=== PATIENT | male | born 1950 | race Caucasian/White ===

== ENCOUNTER 2019-07-09 21:08 | Inpatient (IN) | payer MEDICARE, OTHER ==
[2019-07-09] MEDS: Pravastatin Sodium 20 MG TAB PO SCH (22:14)
[2019-07-09] MEDS ORDERED: Pravastatin Sodium 20 MG TAB PO SCH (22:15)
[2019-07-09] MEDS ORDERED: Gabapentin 100 MG CAP PO SCH (22:15)
[2019-07-09] MEDS ORDERED: Atenolol 25 MG TAB PO SCH (22:15)
[2019-07-09] MEDS: ICOSAPENT ETHYL PO SCH (22:22)
[2019-07-10] MEDS ORDERED: Gentamicin 80 MG/2 ML VIAL IVPB SCH
[2019-07-10 05:36] LABS: ALT (SGPT) 16 U/L (8-55); AST (SGOT) 18 U/L (5-34); Albumin 2.8 g/dL (3.4-4.8); Alkaline Phosphatase 94 U/L (40-110); Anion Gap 12 mmol/L (10-20); BUN (Urea Nitrogen) 11 mg/dL (8.4-25.7); Bilirubin, Total 0.6 mg/dL (0.2-1.2); Calc. Creatinine Clearance 88 mL/min (70-130); Calcium 8.4 mg/dL (7.8-10.44); Carbon Dioxide 27 mmol/L (23-31); Chloride 99 mmol/L (98-107); Estimated GFR-MDRD 79; Glucose 108 mg/dL (80-115); Potassium 3.7 mmol/L (3.5-5.1); Sodium 134 mmol/L (136-145)
[2019-07-10 05:39] LABS: #Eosinphils 0.2 thou/uL (0.0-0.7); #Lymphocytes 0.6 thou/uL (1.20-3.40); #Monocytes 0.7 thou/uL (0.11-0.59); %Basophils 0.6 % (0.0-1.0); %Eosinophils 3.6 % (0.0-10.0); %Lymphocytes 9.3 % (21.0-51.0); %Monocytes 10.6 % (0.0-10.0); %Neutrophils 75.9 % (42.0-75.0); Hemoglobin 7.6 g/dL (14.0-18.0); Mean Corpuscular HGB CONC 31.1 g/dL (32.0-36.0); Mean Corpuscular Hemoglobin 26.9 pg (27.0-31.0); Mean Corpuscular Volume 86.7 fL (78.0-98.0); Mean Platelet Volume 6.7 fL (7.4-10.4); Platelet Count 124 thou/uL (130-400); Red Blood Cell (RBC) Count 2.81 mill/uL (4.70-6.10); White Blood Cell (WBC) Count 6.6 thou/uL (4.8-10.8)
[2019-07-10 06:04] LABS: CRP (Inflammatory) 6.36 mg/dL (= or < 0.5); Globulin 3.6 g/dL (2.4-3.5); Protein, Total 6.4 g/dL (5.8-8.1)
[2019-07-10] MEDS: Potassium Chloride 10 MEQ TAB PO SCH (08:38)
[2019-07-10] MEDS: Gabapentin 100 MG CAP PO SCH ×3 (08:38→21:02)
[2019-07-10] MEDS: Amlodipine 5 MG TAB PO SCH (08:38)
[2019-07-10] MEDS: Bupropion 150 MG XL TAB PO SCH (08:38)
[2019-07-10] MEDS: Aspirin 81 mg Enteric Coated Tablet PO SCH (08:38)
[2019-07-10] MEDS: Niacin SR 500 MG CAP PO SCH (08:38)
[2019-07-10] MEDS: Folic Acid 1 MG TAB PO SCH (08:39)
[2019-07-10] MEDS: Furosemide 40 MG TAB PO SCH (08:39)
[2019-07-10] MEDS: ICOSAPENT ETHYL PO SCH ×2 (08:41→21:02)
[2019-07-10] MEDS ORDERED: Ferrous Sulfate 325 MG TAB PO SCH (08:45)
[2019-07-10] MEDS: AMPicillin 1 GM in Sodium Chloride 0.9% 100 ML IVPB SCH ×4 (09:20→17:10)
--- NOTE | 2019-07-10 11:15 | HP ---
PRIMARY CARE PHYSICIAN: Dr. Leon, in [place]. Wire Harness Design Engineer, Dr. Teran. Infectious Disease, Dr. Doll. REASON FOR ADMISSION: To complete IV antibiotic therapy in [facility]. HISTORY OF PRESENT ILLNESS AND HOSPITAL COURSE: Mr. Castaneda is a very pleasant 69-year-old male with multiple chronic medical conditions including hypertension, coronary artery disease, status post aortic valve replacement, status post bypass surgery in January of 2019. He did develop postoperative atrial fibrillation that was prolonged at that time. He was placed on amiodarone therapy in addition to Eliquis. He recently presented with increased shortness of breath and complained of lower extremity edema in addition to paroxysmal nocturnal dyspnea. His hemoglobin was 8 upon admission. He also had a history of having complicated UTI and was placed on multiple antibiotics. He also reported some subjective fever at home. The patient was admitted on 07/04/[address] [facility]. On further evaluation, the patient was diagnosed with decompensated CHF with BNP of 795. His echocardiogram on 07/05/2019, showed EF of 40% to 45%. Gradient suggestive of moderate aortic stenosis. Chest/thorax CTA showed no evidence of pulmonary embolus. Bilateral pleural effusions with compressive atelectasis. Streaky infiltrate in the lingula of the left upper lobe and in the lower lobe suggestive of inflammatory/infectious process. Evidence of cholelithiasis. MARLEY performed on 07/07/2019, showed endocarditis in the LVOT side of the aortic valve. Likely abscess noted in the perivalvular region. Infectious Disease specialist was consulted for possible endocarditis. Dr. Doll ordered antimicrobial coverage pending culture. Culture came back with Enterococcus faecalis. Two of two culture sets drawn are positive for Enterococcus faecalis. Dr. Doll recommended to switch the patient's antibiotic to ampicillin and gentamicin for Enterococcus faecalis endocarditis coverage. Infectious Disease recommendation is to treat him for at least 4 to 6 weeks of the current IV antibiotics and switch him to ampicillin and Rocephin for the remainder of the course of a total of 3 months. There was also a thought that in view of the annular abscess noted, the patient might likely need a valve removal and replacement per Infectious Disease notes. GI was also consulted for further evaluation of the patient's anemia. Dr. Iban Townsend's impression is anemia without overt bleeding. Per GI notes, the patient may have a combination with the iron deficiency at all. The patient has never had upper or lower endoscopy. Per GI, ideally they would perform EGD and colonoscopy to evaluate this further; however, given the lack of overt bleeding evidence, no further endoscopy was recommended at that time. The patient was started on proton pump inhibitor. During this hospitalization, Dr. Iban Dejesus, the patient's cardiovascular who replace his aortic valve was likewise consulted. Per Cardiovascular notes, he agreed to continue antibiotic therapy, preferably rather than jumping right into redoing aortic valve replacement. After the patient has been stabilized in the hospital, cardiologists and Infectious Disease specialist were into agreement that the patient will continue his long-term IV antibiotic therapy with recommendation of Dr. Teran to have a repeat MARLEY in the next 2 to 3 weeks. Aspirin was decreased to 81 mg q.a.m and Eliquis was discontinued by Wire Harness Design Engineer. Dr Teran recommended to continue atenolol in addition to pravastatin and niacin. The patient was then transferred to [place] on 07/09/2019 to continue IV antibiotic therapy in Swing bed. When evaluated at [facility], the patient was awake, alert, and comfortable on examination. He reports no new issues. He denies chest pain, sharp, active shortness of breath. He has been febrile free since he has been in the hospital. No new issues reported at this time. The patient has understanding of his current condition and the plan for his care. He agrees to continue the current IV antibiotics, with routine serial lab monitoring and to follow up with body presser as recommended. PAST MEDICAL HISTORY: CAD status post 3-vessel CABG in January 2019, dyslipidemia, neuropathic pain, testosterone deficiency, ELIOT on CPAP at home, CHF, diabetes type 2, and osteoarthritis, Anxiety. PAST SURGICAL HISTORY: Status post CABG x2 vessel and aortic valve replacement in January [address] Dejesus. SOCIAL HISTORY: No current tobacco, alcohol, or illicit drug use. CURRENT MEDICATIONS: 1. Potassium 10 mEq p.o. daily. 2. DuoNeb. 3. Lasix 20 mg po qd 4. Amlodipine 10 mg p.o. daily. 5. Ampicillin 1 g q.4 hours. 6. Aspirin 81 mg p.o. daily. 7. Atenolol 50 mg p.o. at bedtime. 8. Bupropion 150 mg p.o. q.a.m. 9. Folic acid 1 mg p.o. daily. 10. Furosemide 20 mg p.o. daily. 11. Gabapentin 100 mg p.o. t.i.d. 12. Gentamicin 60 mg IV q.i.d. 13. Pravastatin 80 mg p.o. at bedtime. REVIEW OF SYSTEMS: GENERAL: Reports initially with subjective fevers, now has been febrile free. Reports fatigue, general weakness. No loss of appetite. HEENT: No acute visual changes or hearing changes. No cold symptoms. RESPIRATORY: Reports intermittent shortness of breath. No chronic cough, sputum production, pain with breathing, wheezing. CARDIO: As per HPI. GENITOURINARY: No dysuria, hematuria, frequency, urgency, or incontinence. MUSCULOSKELETAL: Reports intermittent joint pains. Denies joint effusions, or erythema. SKIN: Reports dermatitis of the face/choi area. No pruritus. No wounds or other skin conditions. NEURO: No focal numbness or focal weakness with unsteadiness of gait. PSYCH: Reports anxiety controlled with current medications. No hallucinations. No suicidal thoughts, ideations, or active depressive symptoms. GI: No nausea, vomiting, abdominal pain, diarrhea, constipation, or incontinence. Denies rectal bleeding, hematochezia, hematemesis, or melena. LABORATORY DATA: Recent blood works and tests, hemoglobin ranges between 8 and 8.5. Most recent hemoglobin on 07/07/2019 was 8.2 and 26, hematocrit 26.2. WBC 10, platelet counts 140. 07/04/2019; D-dimer 2.77. 07/07/2019; PT 14.1, INR 1.1. Basic metabolic panel on 07/09/2019; sodium 130, potassium 3.5, chloride 96, BUN 10, creatinine 0.84, estimated GFR greater than 90, calcium 8.4. C-reactive protein on 07/07, 6.44; on 07/08, 7.61. Gentamicin trough on 07/09/2019, 0.7. UA on 07/06/2019, rbc 4 to 6, urine wbc 4 to 6. Urine sodium 47, urine osmolality 516. IMAGING STUDIES: Chest x-ray on 07/06/2019, improving congestion and pleural effusion. No significant new process. On chest x-ray on 07/04/2019, showed evidence of decompensated CHF with pulmonary edema and pleural fluid. PHYSICAL EXAMINATION: VITAL SIGNS: 109/53 blood pressure, temperature 99.6, pulse 81, respirations 18 , O2 saturation 95% at room air, weight 185 pounds and 14.4 ounces, height 5 feet 11 inches. GENERAL: The patient is awake, alert, and oriented x3, not in distress, comfortable on exam. HEENT: Normocephalic, atraumatic. PERRL. Intact EOM. Anicteric sclerae. Oral mucosa is moist. NECK: Supple. No LAD. No thyromegaly. CHEST: New postoperative scar on the mid chest is well healed in appearance. Normal excursion. Symmetrical expansion. Nonlabored breathing. LUNGS: Good air entry. Diminished bibasilar breath sounds. No rales. No crackles. No rhonchi. No wheezes bilaterally. CARDIO: Rate controlled. Normal S1 and S2. ABDOMEN: Obese, soft. Normoactive bowel sounds. Nondistended, nontender. No rebound. No guarding. Negative CVA tenderness bilaterally. EXTREMITIES: No edema. No cyanosis. PICC line in place, left arm, intact. No signs of infection. SKIN: Good skin turgor. Positive dermatitis, face, choi hairy areas. PSYCH: Calm, appropriate. Demeanor and affect, appropriately socially interactive. NEURO: Nonfocal. DTRs 2+. Gait with some unsteadiness. ASSESSMENT : 1. Enterococcus faecalis endocarditis with perivalvular abscess. 2. Coronary artery disease, status post coronary artery bypass graft. 3. Status post valve replacement in January of 2019. 4. Anemia without occult bleeding. 5. Congestive heart failure, EF 40-45%. 6. Anxiety. 7. Deconditioning. 8. General weakness, 9. Unsteady gait. 10.Obstructive sleep apnea on CPAP. PLAN : The patient to continue IV antibiotic as per Infectious Disease's recommendations. We will continue the rest of his transfer medications. Routine lab monitoring for CBC, BMP, sed reate and CRP q weekly. Routine Gentamicin trough with pharmacy to dose We will add PPI for GI prophylaxis. DVT prophylaxis with Lovenox. Further recommendations depending on the hospital course. CODE STATUS: The patient reports FULL CODE. Job ID: [id number] MTDD
[2019-07-10] MEDS: Ferrous Sulfate 325 MG TAB PO SCH (17:04)
[2019-07-10] MEDS: Ampicillin 2 GM in Sodium Chloride 0.9% 100 ML IVPB SCH (20:55)
[2019-07-10] MEDS: Pravastatin Sodium 20 MG TAB PO SCH (20:59)
[2019-07-10] MEDS: Atenolol 25 MG TAB PO SCH (21:01)
[2019-07-10] MEDS: Triamcinolone 0.1% Cream 15 GM TUBE TOP PRN (21:08)
[2019-07-11] MEDS: Ampicillin 2 GM in Sodium Chloride 0.9% 100 ML IVPB SCH ×6 (01:03→20:43)
[2019-07-11 05:21] LABS: Hemoglobin 7.7 g/dL (14.0-18.0); Platelet Count 131 thou/uL (130-400)
[2019-07-11] MEDS: ICOSAPENT ETHYL PO SCH ×2 (08:12→20:44)
[2019-07-11] MEDS: Bupropion 150 MG XL TAB PO SCH (08:13)
[2019-07-11] MEDS: Niacin SR 500 MG CAP PO SCH (08:18)
[2019-07-11] MEDS: Aspirin 81 mg Enteric Coated Tablet PO SCH (08:18)
[2019-07-11] MEDS: Ferrous Sulfate 325 MG TAB PO SCH ×2 (08:18→16:56)
[2019-07-11] MEDS: Furosemide 40 MG TAB PO SCH (08:18)
[2019-07-11] MEDS: Gabapentin 100 MG CAP PO SCH ×3 (08:18→20:46)
[2019-07-11] MEDS: Potassium Chloride 10 MEQ TAB PO SCH (08:18)
[2019-07-11] MEDS: Folic Acid 1 MG TAB PO SCH (08:18)
[2019-07-11] MEDS: Amlodipine 5 MG TAB PO SCH (08:18)
[2019-07-11] MEDS ORDERED: Furosemide 20 MG TAB PO SCH (10:00)
[2019-07-11] MEDS ORDERED: Ondansetron ODT 4 MG TAB PO PRN (17:39)
[2019-07-11] MEDS: Pravastatin Sodium 20 MG TAB PO SCH (20:39)
[2019-07-11] MEDS: Atenolol 25 MG TAB PO SCH (20:41)
[2019-07-12] MEDS: Ampicillin 2 GM in Sodium Chloride 0.9% 100 ML IVPB SCH ×6 (00:44→21:10)
[2019-07-12 05:29] LABS: Anion Gap 11 mmol/L (10-20); BUN (Urea Nitrogen) 8 mg/dL (8.4-25.7); Calc. Creatinine Clearance 98 mL/min (70-130); Calcium 8.3 mg/dL (7.8-10.44); Carbon Dioxide 24 mmol/L (23-31); Chloride 103 mmol/L (98-107); Estimated GFR-MDRD 88; Glucose 106 mg/dL (80-115); Potassium 3.7 mmol/L (3.5-5.1); Sodium 134 mmol/L (136-145)
[2019-07-12 05:38] LABS: #Eosinphils 0.2 thou/uL (0.0-0.7); #Lymphocytes 0.6 thou/uL (1.20-3.40); #Monocytes 0.7 thou/uL (0.11-0.59); %Basophils 0.5 % (0.0-1.0); %Lymphocytes 7.3 % (21.0-51.0); %Monocytes 9.1 % (0.0-10.0); %Neutrophils 80.1 % (42.0-75.0); Hemoglobin 7.6 g/dL (14.0-18.0); Mean Corpuscular HGB CONC 31.7 g/dL (32.0-36.0); Mean Corpuscular Hemoglobin 27.2 pg (27.0-31.0); Mean Corpuscular Volume 85.7 fL (78.0-98.0); Mean Platelet Volume 5.8 fL (7.4-10.4); Platelet Count 128 thou/uL (130-400); RBC Distribution Width 17.5 % (11.5-14.5); Red Blood Cell (RBC) Count 2.79 mill/uL (4.70-6.10); White Blood Cell (WBC) Count 7.5 thou/uL (4.8-10.8)
[2019-07-12] MEDS: Potassium Chloride 10 MEQ TAB PO SCH (08:49)
[2019-07-12] MEDS: Amlodipine 5 MG TAB PO SCH (08:49)
[2019-07-12] MEDS: Bupropion 150 MG XL TAB PO SCH (08:49)
[2019-07-12] MEDS: Niacin SR 500 MG CAP PO SCH (08:49)
[2019-07-12] MEDS: Folic Acid 1 MG TAB PO SCH (08:49)
[2019-07-12] MEDS: Triamcinolone 0.1% Cream 15 GM TUBE TOP PRN (08:49)
[2019-07-12] MEDS: Gabapentin 100 MG CAP PO SCH ×3 (08:50→21:11)
[2019-07-12] MEDS: Furosemide 20 MG TAB PO SCH (08:50)
[2019-07-12] MEDS: Ferrous Sulfate 325 MG TAB PO SCH ×2 (08:50→17:23)
[2019-07-12] MEDS: Aspirin 81 mg Enteric Coated Tablet PO SCH (08:50)
[2019-07-12] MEDS: ICOSAPENT ETHYL PO SCH ×2 (08:53→21:13)
[2019-07-12] MEDS: GENTAMICIN IVPB SCH ×3 (08:54→23:34)
[2019-07-12] MEDS: Enoxaparin Sodium 40 MG/0.4 ML SYRINGE SC SCH (09:07)
[2019-07-12] MEDS ORDERED: Sterile Water Irrigation 1,000 ML BOT ONE (10:59)
[2019-07-12] MEDS: Atenolol 25 MG TAB PO SCH (21:10)
[2019-07-12] MEDS: Pravastatin Sodium 20 MG TAB PO SCH (21:11)
[2019-07-13] MEDS: Ampicillin 2 GM in Sodium Chloride 0.9% 100 ML IVPB SCH ×6 (00:40→20:45)
[2019-07-13] MEDS: Bupropion 150 MG XL TAB PO SCH (07:41)
[2019-07-13] MEDS: Ferrous Sulfate 325 MG TAB PO SCH ×2 (07:41→16:42)
[2019-07-13] MEDS: Aspirin 81 mg Enteric Coated Tablet PO SCH (07:41)
[2019-07-13] MEDS: Folic Acid 1 MG TAB PO SCH (07:41)
[2019-07-13] MEDS: Amlodipine 5 MG TAB PO SCH (07:41)
[2019-07-13] MEDS: Niacin SR 500 MG CAP PO SCH (07:41)
[2019-07-13] MEDS: Furosemide 20 MG TAB PO SCH (07:42)
[2019-07-13] MEDS: Potassium Chloride 10 MEQ TAB PO SCH (07:42)
[2019-07-13] MEDS: Enoxaparin Sodium 40 MG/0.4 ML SYRINGE SC SCH (07:42)
[2019-07-13] MEDS: Gabapentin 100 MG CAP PO SCH ×3 (07:42→20:43)
[2019-07-13] MEDS: GENTAMICIN IVPB SCH ×2 (07:42→16:42)
[2019-07-13] MEDS: ICOSAPENT ETHYL PO SCH ×2 (07:43→20:50)
[2019-07-13] MEDS: Atenolol 25 MG TAB PO SCH (20:40)
[2019-07-13] MEDS: Pravastatin Sodium 20 MG TAB PO SCH (20:43)
[2019-07-14] MEDS: GENTAMICIN IVPB SCH ×4 (00:13→23:10)
[2019-07-14] MEDS: Ampicillin 2 GM in Sodium Chloride 0.9% 100 ML IVPB SCH ×7 (00:53→23:59)
[2019-07-14] MEDS: Ferrous Sulfate 325 MG TAB PO SCH ×2 (08:02→15:51)
[2019-07-14] MEDS: ICOSAPENT ETHYL PO SCH ×2 (08:02→20:22)
[2019-07-14] MEDS: Bupropion 150 MG XL TAB PO SCH (08:02)
[2019-07-14] MEDS: Gabapentin 100 MG CAP PO SCH ×3 (08:02→20:22)
[2019-07-14] MEDS: Niacin SR 500 MG CAP PO SCH (08:02)
[2019-07-14] MEDS: Amlodipine 5 MG TAB PO SCH (08:02)
[2019-07-14] MEDS: Potassium Chloride 10 MEQ TAB PO SCH (08:03)
[2019-07-14] MEDS: Enoxaparin Sodium 40 MG/0.4 ML SYRINGE SC SCH (08:03)
[2019-07-14] MEDS: Aspirin 81 mg Enteric Coated Tablet PO SCH (08:03)
[2019-07-14] MEDS: Furosemide 20 MG TAB PO SCH (08:03)
[2019-07-14] MEDS: Folic Acid 1 MG TAB PO SCH (08:03)
[2019-07-14] MEDS ORDERED: Loratadine 10 MG TAB PO SCH (10:00)
[2019-07-14] MEDS: Pravastatin Sodium 20 MG TAB PO SCH (20:22)
[2019-07-14] MEDS: Atenolol 25 MG TAB PO SCH (20:22)
[2019-07-15] MEDS: Ampicillin 2 GM in Sodium Chloride 0.9% 100 ML IVPB SCH ×5 (04:51→21:34)
[2019-07-15] MEDS: Gabapentin 100 MG CAP PO SCH ×3 (07:59→21:26)
[2019-07-15] MEDS: Folic Acid 1 MG TAB PO SCH (07:59)
[2019-07-15] MEDS: Bupropion 150 MG XL TAB PO SCH (07:59)
[2019-07-15] MEDS: Amlodipine 5 MG TAB PO SCH (07:59)
[2019-07-15] MEDS: Ferrous Sulfate 325 MG TAB PO SCH ×2 (08:00→16:53)
[2019-07-15] MEDS: Aspirin 81 mg Enteric Coated Tablet PO SCH (08:00)
[2019-07-15] MEDS: GENTAMICIN IVPB SCH (08:00)
[2019-07-15] MEDS: Enoxaparin Sodium 40 MG/0.4 ML SYRINGE SC SCH (08:00)
[2019-07-15] MEDS: Potassium Chloride 10 MEQ TAB PO SCH (08:00)
[2019-07-15] MEDS: Niacin SR 500 MG CAP PO SCH (08:00)
[2019-07-15] MEDS: Loratadine 10 MG TAB PO SCH (08:00)
[2019-07-15] MEDS: Furosemide 20 MG TAB PO SCH (08:00)
[2019-07-15] MEDS: ICOSAPENT ETHYL PO SCH ×2 (08:01→21:28)
[2019-07-15] MEDS: GENTAMICIN SULFATE IVPB SCH ×2 (16:54→23:39)
[2019-07-15] MEDS: SODIUM CHLORIDE 0.9% IVPB SCH ×2 (16:54→23:39)
[2019-07-15] MEDS: Atenolol 25 MG TAB PO SCH (21:26)
[2019-07-15] MEDS: Pravastatin Sodium 20 MG TAB PO SCH (21:27)
[2019-07-16] MEDS: Ampicillin 2 GM in Sodium Chloride 0.9% 100 ML IVPB SCH ×6 (00:48→20:39)
[2019-07-16] MEDS ORDERED: Ampicillin 2 GM VIAL ONE (04:32)
[2019-07-16 09:16] LABS: #Basophils 0.1 thou/uL (0.0-0.2); #Eosinphils 0.3 thou/uL (0.0-0.7); #Lymphocytes 0.8 thou/uL (1.20-3.40); #Monocytes 0.9 thou/uL (0.11-0.59); #Neutrophils 6.9 thou/uL (1.40-6.50); %Basophils 0.7 % (0.0-1.0); %Eosinophils 3.1 % (0.0-10.0); %Lymphocytes 8.5 % (21.0-51.0); %Monocytes 10.1 % (0.0-10.0); %Neutrophils 77.7 % (42.0-75.0); Hemoglobin 8.3 g/dL (14.0-18.0); Mean Corpuscular HGB CONC 31.1 g/dL (32.0-36.0); Mean Corpuscular Hemoglobin 26.7 pg (27.0-31.0); Mean Corpuscular Volume 85.7 fL (78.0-98.0); Mean Platelet Volume 5.5 fL (7.4-10.4); Platelet Count 215 thou/uL (130-400); Red Blood Cell (RBC) Count 3.11 mill/uL (4.70-6.10); White Blood Cell (WBC) Count 8.9 thou/uL (4.8-10.8)
[2019-07-16] MEDS: Ferrous Sulfate 325 MG TAB PO SCH ×2 (09:48→17:27)
[2019-07-16] MEDS: Aspirin 81 mg Enteric Coated Tablet PO SCH (09:48)
[2019-07-16] MEDS: Bupropion 150 MG XL TAB PO SCH (09:48)
[2019-07-16] MEDS: Gabapentin 100 MG CAP PO SCH ×3 (09:48→20:40)
[2019-07-16] MEDS: Potassium Chloride 10 MEQ TAB PO SCH (09:49)
[2019-07-16] MEDS: Loratadine 10 MG TAB PO SCH (09:49)
[2019-07-16] MEDS: Niacin SR 500 MG CAP PO SCH (09:49)
[2019-07-16] MEDS: Furosemide 20 MG TAB PO SCH (09:49)
[2019-07-16] MEDS: Enoxaparin Sodium 40 MG/0.4 ML SYRINGE SC SCH (09:49)
[2019-07-16] MEDS: Folic Acid 1 MG TAB PO SCH (09:49)
[2019-07-16] MEDS: Amlodipine 5 MG TAB PO SCH (09:50)
[2019-07-16] MEDS: SODIUM CHLORIDE 0.9% IVPB SCH ×3 (09:52→23:42)
[2019-07-16] MEDS: GENTAMICIN SULFATE IVPB SCH ×3 (09:52→23:42)
[2019-07-16] MEDS: ICOSAPENT ETHYL PO SCH ×2 (09:55→20:42)
[2019-07-16 10:01] LABS: Anion Gap 13 mmol/L (10-20); BUN (Urea Nitrogen) 8 mg/dL (8.4-25.7); CRP (Inflammatory) 8.31 mg/dL (= or < 0.5); Calc. Creatinine Clearance 86 mL/min (70-130); Carbon Dioxide 24 mmol/L (23-31); Chloride 100 mmol/L (98-107); Estimated GFR-MDRD 78; Glucose 116 mg/dL (80-115); Potassium 4.4 mmol/L (3.5-5.1); Sodium 133 mmol/L (136-145)
[2019-07-16] MEDS: Pravastatin Sodium 20 MG TAB PO SCH (20:40)
[2019-07-16] MEDS: Atenolol 25 MG TAB PO SCH (20:40)
[2019-07-17] MEDS: Ampicillin 2 GM in Sodium Chloride 0.9% 100 ML IVPB SCH ×6 (00:54→20:34)
[2019-07-17] MEDS: Ferrous Sulfate 325 MG TAB PO SCH ×2 (08:54→16:40)
[2019-07-17] MEDS: Bupropion 150 MG XL TAB PO SCH (08:54)
[2019-07-17] MEDS: Loratadine 10 MG TAB PO SCH (08:55)
[2019-07-17] MEDS: Gabapentin 100 MG CAP PO SCH ×3 (08:55→20:36)
[2019-07-17] MEDS: Furosemide 20 MG TAB PO SCH (08:55)
[2019-07-17] MEDS: Amlodipine 5 MG TAB PO SCH (08:55)
[2019-07-17] MEDS: Aspirin 81 mg Enteric Coated Tablet PO SCH (08:55)
[2019-07-17] MEDS: Niacin SR 500 MG CAP PO SCH (08:56)
[2019-07-17] MEDS: Potassium Chloride 10 MEQ TAB PO SCH (08:56)
[2019-07-17] MEDS: Folic Acid 1 MG TAB PO SCH (08:56)
[2019-07-17] MEDS: SODIUM CHLORIDE 0.9% IVPB SCH ×3 (08:57→23:04)
[2019-07-17] MEDS: GENTAMICIN SULFATE IVPB SCH ×3 (08:57→23:04)
[2019-07-17] MEDS: Enoxaparin Sodium 40 MG/0.4 ML SYRINGE SC SCH (08:58)
[2019-07-17] MEDS: ICOSAPENT ETHYL PO SCH ×2 (08:59→20:36)
[2019-07-17] MEDS: Acetaminophen 325 MG TAB PO PRN (16:44)
[2019-07-17] MEDS: Pravastatin Sodium 20 MG TAB PO SCH (20:34)
[2019-07-17] MEDS: Atenolol 25 MG TAB PO SCH (20:35)
[2019-07-18] MEDS: Ampicillin 2 GM in Sodium Chloride 0.9% 100 ML IVPB SCH ×6 (00:19→20:52)
[2019-07-18] MEDS: Acetaminophen 325 MG TAB PO PRN ×2 (04:36→18:39)
[2019-07-18] MEDS: Ferrous Sulfate 325 MG TAB PO SCH ×2 (09:15→16:53)
[2019-07-18] MEDS: Niacin SR 500 MG CAP PO SCH (09:15)
[2019-07-18] MEDS: Gabapentin 100 MG CAP PO SCH ×3 (09:15→20:46)
[2019-07-18] MEDS: Aspirin 81 mg Enteric Coated Tablet PO SCH (09:15)
[2019-07-18] MEDS: Bupropion 150 MG XL TAB PO SCH (09:15)
[2019-07-18] MEDS: Enoxaparin Sodium 40 MG/0.4 ML SYRINGE SC SCH (09:16)
[2019-07-18] MEDS: Loratadine 10 MG TAB PO SCH (09:16)
[2019-07-18] MEDS: Folic Acid 1 MG TAB PO SCH (09:16)
[2019-07-18] MEDS: Furosemide 20 MG TAB PO SCH (09:16)
[2019-07-18] MEDS: ICOSAPENT ETHYL PO SCH ×2 (09:16→20:55)
[2019-07-18] MEDS: Potassium Chloride 10 MEQ TAB PO SCH (09:16)
[2019-07-18] MEDS: Amlodipine 5 MG TAB PO SCH (09:16)
[2019-07-18] MEDS: GENTAMICIN SULFATE IVPB SCH ×3 (09:22→23:59)
[2019-07-18] MEDS: SODIUM CHLORIDE 0.9% IVPB SCH ×3 (09:22→23:59)
[2019-07-18] MEDS: Atenolol 25 MG TAB PO SCH (20:45)
[2019-07-18] MEDS: Pravastatin Sodium 20 MG TAB PO SCH (20:45)
[2019-07-19] MEDS: Acetaminophen 325 MG TAB PO PRN ×2 (00:02→14:42)
[2019-07-19] MEDS: Ampicillin 2 GM in Sodium Chloride 0.9% 100 ML IVPB SCH ×6 (01:01→20:33)
[2019-07-19] MEDS: Ferrous Sulfate 325 MG TAB PO SCH ×2 (08:00→16:56)
[2019-07-19] MEDS: Amlodipine 5 MG TAB PO SCH (08:01)
[2019-07-19] MEDS: Niacin SR 500 MG CAP PO SCH (08:01)
[2019-07-19] MEDS: Potassium Chloride 10 MEQ TAB PO SCH (08:01)
[2019-07-19] MEDS: Furosemide 20 MG TAB PO SCH ×2 (08:01→11:59)
[2019-07-19] MEDS: Bupropion 150 MG XL TAB PO SCH (08:01)
[2019-07-19] MEDS: Gabapentin 100 MG CAP PO SCH ×3 (08:01→20:36)
[2019-07-19] MEDS: Loratadine 10 MG TAB PO SCH (08:01)
[2019-07-19] MEDS: Folic Acid 1 MG TAB PO SCH (08:01)
[2019-07-19] MEDS: Aspirin 81 mg Enteric Coated Tablet PO SCH (08:02)
[2019-07-19] MEDS: Enoxaparin Sodium 40 MG/0.4 ML SYRINGE SC SCH (08:02)
[2019-07-19] MEDS: GENTAMICIN SULFATE IVPB SCH (08:05)
[2019-07-19] MEDS: SODIUM CHLORIDE 0.9% IVPB SCH (08:05)
[2019-07-19] MEDS: ICOSAPENT ETHYL PO SCH ×2 (08:07→20:36)
[2019-07-19] MEDS: Atenolol 25 MG TAB PO SCH (20:34)
[2019-07-19] MEDS: Pravastatin Sodium 20 MG TAB PO SCH (20:34)
[2019-07-20] MEDS: Ampicillin 2 GM in Sodium Chloride 0.9% 100 ML IVPB SCH ×6 (00:37→21:45)
[2019-07-20] MEDS: Acetaminophen 325 MG TAB PO PRN ×2 (04:19→17:47)
[2019-07-20] MEDS: Gabapentin 100 MG CAP PO SCH ×3 (08:17→21:45)
[2019-07-20] MEDS: Furosemide 20 MG TAB PO SCH (08:17)
[2019-07-20] MEDS: Aspirin 81 mg Enteric Coated Tablet PO SCH (08:17)
[2019-07-20] MEDS: Ferrous Sulfate 325 MG TAB PO SCH ×2 (08:17→16:38)
[2019-07-20] MEDS: Amlodipine 5 MG TAB PO SCH (08:17)
[2019-07-20] MEDS: Folic Acid 1 MG TAB PO SCH (08:18)
[2019-07-20] MEDS: Potassium Chloride 10 MEQ TAB PO SCH (08:18)
[2019-07-20] MEDS: Niacin SR 500 MG CAP PO SCH (08:18)
[2019-07-20] MEDS: Enoxaparin Sodium 40 MG/0.4 ML SYRINGE SC SCH (08:18)
[2019-07-20] MEDS: Loratadine 10 MG TAB PO SCH (08:18)
[2019-07-20] MEDS: Bupropion 150 MG XL TAB PO SCH (08:26)
[2019-07-20] MEDS: ICOSAPENT ETHYL PO SCH ×2 (08:26→21:50)
[2019-07-20] MEDS ORDERED: SODIUM CHLORIDE 0.9% IVPB SCH (08:30)
[2019-07-20] MEDS ORDERED: GENTAMICIN SULFATE IVPB SCH (08:30)
[2019-07-20] MEDS ORDERED: Gentamicin 80 MG/2 ML VIAL ONE (16:31)
[2019-07-20] MEDS: Atenolol 25 MG TAB PO SCH (21:46)
[2019-07-20] MEDS: Pravastatin Sodium 20 MG TAB PO SCH (21:48)
[2019-07-21] MEDS: Ampicillin 2 GM in Sodium Chloride 0.9% 100 ML IVPB SCH ×7 (00:11→20:40)
[2019-07-21 05:25] LABS: Anion Gap 13 mmol/L (10-20); BUN (Urea Nitrogen) 10 mg/dL (8.4-25.7); Calc. Creatinine Clearance 81 mL/min (70-130); Calcium 9.1 mg/dL (7.8-10.44); Carbon Dioxide 24 mmol/L (23-31); Chloride 102 mmol/L (98-107); Estimated GFR-MDRD 73; Glucose 118 mg/dL (80-115); Potassium 4.1 mmol/L (3.5-5.1); Sodium 135 mmol/L (136-145)
[2019-07-21] MEDS: Gabapentin 100 MG CAP PO SCH ×3 (07:58→20:42)
[2019-07-21] MEDS: Niacin SR 500 MG CAP PO SCH (07:58)
[2019-07-21] MEDS: Ferrous Sulfate 325 MG TAB PO SCH ×2 (07:58→16:38)
[2019-07-21] MEDS: Furosemide 20 MG TAB PO SCH (07:58)
[2019-07-21] MEDS: Potassium Chloride 10 MEQ TAB PO SCH (07:58)
[2019-07-21] MEDS: Loratadine 10 MG TAB PO SCH (07:59)
[2019-07-21] MEDS: Bupropion 150 MG XL TAB PO SCH (07:59)
[2019-07-21] MEDS: Enoxaparin Sodium 40 MG/0.4 ML SYRINGE SC SCH (07:59)
[2019-07-21] MEDS: Aspirin 81 mg Enteric Coated Tablet PO SCH (07:59)
[2019-07-21] MEDS: Amlodipine 5 MG TAB PO SCH (07:59)
[2019-07-21] MEDS: Folic Acid 1 MG TAB PO SCH (07:59)
[2019-07-21] MEDS: ICOSAPENT ETHYL PO SCH ×2 (08:01→20:44)
[2019-07-21] MEDS: Acetaminophen 325 MG TAB PO PRN (16:38)
[2019-07-21] MEDS: Atenolol 25 MG TAB PO SCH (20:41)
[2019-07-21] MEDS: Pravastatin Sodium 20 MG TAB PO SCH (20:42)
[2019-07-22] MEDS: Acetaminophen 325 MG TAB PO PRN ×2 (00:16→16:59)
[2019-07-22] MEDS: Ampicillin 2 GM in Sodium Chloride 0.9% 100 ML IVPB SCH ×6 (00:56→20:36)
[2019-07-22] MEDS: Ferrous Sulfate 325 MG TAB PO SCH ×2 (07:45→16:59)
[2019-07-22] MEDS: Bupropion 150 MG XL TAB PO SCH (08:32)
[2019-07-22] MEDS: Aspirin 81 mg Enteric Coated Tablet PO SCH (08:32)
[2019-07-22] MEDS: Enoxaparin Sodium 40 MG/0.4 ML SYRINGE SC SCH (08:32)
[2019-07-22] MEDS: Amlodipine 5 MG TAB PO SCH (08:32)
[2019-07-22] MEDS: Furosemide 20 MG TAB PO SCH (08:33)
[2019-07-22] MEDS: Potassium Chloride 10 MEQ TAB PO SCH (08:33)
[2019-07-22] MEDS: Niacin SR 500 MG CAP PO SCH (08:33)
[2019-07-22] MEDS: Loratadine 10 MG TAB PO SCH (08:33)
[2019-07-22] MEDS: Gabapentin 100 MG CAP PO SCH ×3 (08:33→20:38)
[2019-07-22] MEDS: Folic Acid 1 MG TAB PO SCH (08:33)
[2019-07-22] MEDS: ICOSAPENT ETHYL PO SCH ×2 (08:34→20:38)
[2019-07-22] MEDS: Pravastatin Sodium 20 MG TAB PO SCH (20:37)
[2019-07-22] MEDS: Atenolol 25 MG TAB PO SCH (20:37)
[2019-07-23] MEDS: Ampicillin 2 GM in Sodium Chloride 0.9% 100 ML IVPB SCH ×6 (00:27→21:23)
[2019-07-23 05:55] LABS: Anion Gap 14 mmol/L (10-20); BUN (Urea Nitrogen) 10 mg/dL (8.4-25.7); Calc. Creatinine Clearance 74 mL/min (70-130); Calcium 9.2 mg/dL (7.8-10.44); Carbon Dioxide 24 mmol/L (23-31); Chloride 103 mmol/L (98-107); Estimated GFR-MDRD 66; Glucose 116 mg/dL (80-115); Sodium 137 mmol/L (136-145)
[2019-07-23 05:56] LABS: Band 2 % (5-11); Eosinophils 6 % (0-10); Hemoglobin 8.5 g/dL (14.0-18.0); Hypochromia MODERATE=16-30 cells (100X) (0-5/hpf); Lymphocytes 15 % (21-51); MDiff Complete? YES; Mean Corpuscular HGB CONC 32.1 g/dL (32.0-36.0); Mean Corpuscular Hemoglobin 27.3 pg (27.0-31.0); Mean Corpuscular Volume 84.8 fL (78.0-98.0); Mean Platelet Volume 5.4 fL (7.4-10.4); Monocytes 5 % (0-10); Neutrophil 72 % (42-75); Platelet Count 232 thou/uL (130-400); Platelet Morphology Comment Appears Adequate; RBC Distribution Width 16.2 % (11.5-14.5); Red Blood Cell (RBC) Count 3.12 mill/uL (4.70-6.10); White Blood Cell (WBC) Count 8.2 thou/uL (4.8-10.8)
[2019-07-23] MEDS: Acetaminophen 325 MG TAB PO PRN (06:03)
[2019-07-23] MEDS: Enoxaparin Sodium 40 MG/0.4 ML SYRINGE SC SCH (08:45)
[2019-07-23] MEDS: Ferrous Sulfate 325 MG TAB PO SCH ×2 (08:45→17:14)
[2019-07-23] MEDS: Amlodipine 5 MG TAB PO SCH (08:46)
[2019-07-23] MEDS: Furosemide 20 MG TAB PO SCH (08:46)
[2019-07-23] MEDS: Potassium Chloride 10 MEQ TAB PO SCH (08:46)
[2019-07-23] MEDS: Loratadine 10 MG TAB PO SCH (08:46)
[2019-07-23] MEDS: Gabapentin 100 MG CAP PO SCH ×3 (08:46→21:25)
[2019-07-23] MEDS: Aspirin 81 mg Enteric Coated Tablet PO SCH (08:46)
[2019-07-23] MEDS: Bupropion 150 MG XL TAB PO SCH (08:46)
[2019-07-23] MEDS: Niacin SR 500 MG CAP PO SCH (08:47)
[2019-07-23] MEDS: Folic Acid 1 MG TAB PO SCH (08:47)
[2019-07-23] MEDS: ICOSAPENT ETHYL PO SCH ×2 (08:54→21:28)
[2019-07-23] MEDS: Atenolol 25 MG TAB PO SCH (21:24)
[2019-07-23] MEDS: Pravastatin Sodium 20 MG TAB PO SCH (21:24)
[2019-07-24] MEDS: Ampicillin 2 GM in Sodium Chloride 0.9% 100 ML IVPB SCH ×6 (00:42→21:01)
[2019-07-24] MEDS: Ferrous Sulfate 325 MG TAB PO SCH ×2 (08:24→17:06)
[2019-07-24] MEDS: Amlodipine 5 MG TAB PO SCH (08:32)
[2019-07-24] MEDS: Enoxaparin Sodium 40 MG/0.4 ML SYRINGE SC SCH (08:34)
[2019-07-24] MEDS: Bupropion 150 MG XL TAB PO SCH (08:34)
[2019-07-24] MEDS: Aspirin 81 mg Enteric Coated Tablet PO SCH (08:34)
[2019-07-24] MEDS: Folic Acid 1 MG TAB PO SCH (08:35)
[2019-07-24] MEDS: Furosemide 20 MG TAB PO SCH (08:36)
[2019-07-24] MEDS: Niacin SR 500 MG CAP PO SCH (08:36)
[2019-07-24] MEDS: Loratadine 10 MG TAB PO SCH (08:36)
[2019-07-24] MEDS: Gabapentin 100 MG CAP PO SCH ×3 (08:36→21:04)
[2019-07-24] MEDS: Potassium Chloride 10 MEQ TAB PO SCH (08:37)
[2019-07-24] MEDS: ICOSAPENT ETHYL PO SCH ×2 (08:38→21:06)
[2019-07-24] MEDS: Acetaminophen 325 MG TAB PO PRN (13:20)
[2019-07-24] MEDS: Atenolol 25 MG TAB PO SCH (21:04)
[2019-07-24] MEDS: Pravastatin Sodium 20 MG TAB PO SCH (21:05)
[2019-07-25] MEDS: Ampicillin 2 GM in Sodium Chloride 0.9% 100 ML IVPB SCH ×6 (00:25→21:40)
[2019-07-25] MEDS: Acetaminophen 325 MG TAB PO PRN (01:11)
[2019-07-25] MEDS: Ferrous Sulfate 325 MG TAB PO SCH ×2 (07:32→16:54)
[2019-07-25] MEDS: Aspirin 81 mg Enteric Coated Tablet PO SCH (08:49)
[2019-07-25] MEDS: Bupropion 150 MG XL TAB PO SCH (08:49)
[2019-07-25] MEDS: Niacin SR 500 MG CAP PO SCH (08:50)
[2019-07-25] MEDS: Enoxaparin Sodium 40 MG/0.4 ML SYRINGE SC SCH (08:50)
[2019-07-25] MEDS: Potassium Chloride 10 MEQ TAB PO SCH (08:50)
[2019-07-25] MEDS: Loratadine 10 MG TAB PO SCH (08:50)
[2019-07-25] MEDS: Folic Acid 1 MG TAB PO SCH (08:50)
[2019-07-25] MEDS: Gabapentin 100 MG CAP PO SCH ×3 (08:50→21:41)
[2019-07-25] MEDS: Furosemide 20 MG TAB PO SCH (08:50)
[2019-07-25] MEDS: Amlodipine 5 MG TAB PO SCH (08:51)
[2019-07-25] MEDS: ICOSAPENT ETHYL PO SCH ×2 (09:02→21:49)
[2019-07-25] MEDS: Atenolol 25 MG TAB PO SCH (21:41)
[2019-07-25] MEDS: Pravastatin Sodium 20 MG TAB PO SCH (21:42)
[2019-07-26] MEDS: Ampicillin 2 GM in Sodium Chloride 0.9% 100 ML IVPB SCH ×5 (00:36→17:11)
[2019-07-26 05:34] LABS: Anion Gap 12 mmol/L (10-20); BUN (Urea Nitrogen) 9 mg/dL (8.4-25.7); Calc. Creatinine Clearance 78 mL/min (70-130); Carbon Dioxide 24 mmol/L (23-31); Chloride 104 mmol/L (98-107); Estimated GFR-MDRD 72; Glucose 107 mg/dL (80-115); Potassium 3.9 mmol/L (3.5-5.1); Sodium 136 mmol/L (136-145)
[2019-07-26] MEDS: Ferrous Sulfate 325 MG TAB PO SCH ×2 (08:37→17:08)
[2019-07-26] MEDS: Bupropion 150 MG XL TAB PO SCH (08:38)
[2019-07-26] MEDS: Enoxaparin Sodium 40 MG/0.4 ML SYRINGE SC SCH (08:38)
[2019-07-26] MEDS: Amlodipine 5 MG TAB PO SCH (08:38)
[2019-07-26] MEDS: Aspirin 81 mg Enteric Coated Tablet PO SCH (08:38)
[2019-07-26] MEDS: Niacin SR 500 MG CAP PO SCH (08:39)
[2019-07-26] MEDS: Furosemide 20 MG TAB PO SCH (08:39)
[2019-07-26] MEDS: Folic Acid 1 MG TAB PO SCH (08:39)
[2019-07-26] MEDS: Potassium Chloride 10 MEQ TAB PO SCH (08:39)
[2019-07-26] MEDS: Loratadine 10 MG TAB PO SCH (08:39)
[2019-07-26] MEDS: Gabapentin 100 MG CAP PO SCH ×2 (08:39→15:53)
[2019-07-26] MEDS: ICOSAPENT ETHYL PO SCH (08:39)
[2019-07-26 11:28] VITALS: BMI 25.0
[2019-07-26 19:15] VITALS: BP 114/54; TEMP 98.2
== END 2019-07-26 19:04 | disposition short-term general hospital (02) | DRG 314 ==
LOC: MADMS 21:08
PROVIDERS: ADMIT Family Medicine; ATTEND Family Medicine
DX: T82.6XXA Infection and inflammatory reaction due to cardiac valve prosthesis, initial encounter (principal); I33.0 Acute and subacute infective endocarditis; I25.10 Atherosclerotic heart disease of native coronary artery without angina pectoris; Z95.2 Presence of prosthetic heart valve; Z95.1 Presence of aortocoronary bypass graft; E78.5 Hyperlipidemia, unspecified; F41.9 Anxiety disorder, unspecified; G47.33 Obstructive sleep apnea (adult) (pediatric); E11.9 Type 2 diabetes mellitus without complications; M19.91 Primary osteoarthritis, unspecified site; I50.9 Heart failure, unspecified; I11.0 Hypertensive heart disease with heart failure; Z79.82 Long term (current) use of aspirin; Z79.899 Other long term (current) drug therapy; R53.1 Weakness; R53.81 Other malaise; R26.9 Unspecified abnormalities of gait and mobility; D64.9 Anemia, unspecified; B95.2 Enterococcus as the cause of diseases classified elsewhere
CPT/HCPCS: 36415; 80048; 80053; 80170; 85014; 85018; 85025; 85049; 85652; 86140; 94640; A4217; J0290; J1580; J1650; J3490; J7620

== ENCOUNTER 2019-07-26 18:13 | Emergency (ER) | payer MEDICARE, OTHER ==
[2019-07-26] MEDS ORDERED: Dextrose 5 %-0.45 % NaCl 1,000 ML ONE (19:20)
--- NOTE | 2019-07-26 19:42 | RAD ---
Chest AP view INDICATION: Dyspnea COMPARISON: Prior single view the chest dated July 06, 2019 FINDINGS: Lungs:There is right basilar airspace opacity. Left lung is clear. Cardiac silhouette:There is [id number] cardiomegaly with pulmonary vascular congestion Pulmonary vasculature:There is mild pulmonary vascular congestion Pleural spaces:There is a moderate right pleural effusion Upper abdomen:No abnormality seen. Osseous structures: No acute osseous abnormality. Additional findings:There is a new left-sided PICC line. There is stable post-CABG change. IMPRESSION: Worsening cardiomegaly, pulmonary vascular congestion and right-sided pleural effusion. R ecommend correlation for CHF. Right basilar opacity may reflect atelectasis or pneumonia. Recommend correlation. Continued radiographic follow-up is recommended.
== END 2019-07-26 19:43 | disposition home or self-care (01) ==
LOC: MADERS 18:13
DX: I33.9 Acute and subacute endocarditis, unspecified (principal); J44.1 Chronic obstructive pulmonary disease with (acute) exacerbation; I38 Endocarditis, valve unspecified
CPT/HCPCS: 71045; 94760; J7042; J7620

== ENCOUNTER 2019-08-12 10:44 | Inpatient (IN) | payer MEDICARE, OTHER ==
[2019-08-12] MEDS ORDERED: Senokot 8.6 MG TAB PO PRN (18:10)
[2019-08-12] MEDS ORDERED: Acetaminophen ER (8hr) 650 MG TAB PO PRN (18:14)
[2019-08-12] MEDS ORDERED: cefTRIAXone\\ROCEPHIN 2 GM VIAL IVPB SCH (18:15)
[2019-08-12] MEDS: Acetaminophen/Codeine 30-300mg Tablet PO PRN (18:31)
[2019-08-12] MEDS ORDERED: Ampicillin 2 GM in Sodium Chloride 0.9% 100 ML IVPB SCH (19:15)
[2019-08-12] MEDS: Atorvastatin Calcium 10 MG TAB PO SCH (21:44)
[2019-08-12] MEDS: Carvedilol 6.25 MG TAB PO SCH (21:44)
[2019-08-12] MEDS: Arformoterol 15 MCG/2 ML NEB NEB SCH (21:44)
[2019-08-12] MEDS: Apixaban 5 MG TAB PO SCH (21:44)
[2019-08-12] MEDS: cefTRIAXone\\ROCEPHIN 2 GM in Sodium Chloride 0.9% 100 ML IVPB SCH (21:45)
[2019-08-12] MEDS ORDERED: [UNRECOGNIZED DRUG - OTHER] IV SCH (22:00)
[2019-08-12] MEDS ORDERED: HEPARIN SODIUM PORCINE IV SCH (22:00)
[2019-08-12] MEDS ORDERED: Ampicillin 2 GM VIAL IV SCH (23:59)
[2019-08-13] MEDS: Ampicillin 2 GM in Sodium Chloride 0.9% 100 ML IVPB SCH ×5 (00:35→23:48)
[2019-08-13] MEDS: Ipratropium Bromide 2.5 ml Neb NEB SCH ×5 (00:35→23:49)
[2019-08-13 07:21] LABS: ALT (SGPT) 35 U/L (8-55); AST (SGOT) 30 U/L (5-34); Albumin 2.7 g/dL (3.4-4.8); Alkaline Phosphatase 94 U/L (40-110); Anion Gap 10 mmol/L (10-20); BUN (Urea Nitrogen) 10 mg/dL (8.4-25.7); Bilirubin, Total 0.3 mg/dL (0.2-1.2); Calc. Creatinine Clearance 55 mL/min (70-130); Calcium 8.8 mg/dL (7.8-10.44); Carbon Dioxide 34 mmol/L (23-31); Chloride 101 mmol/L (98-107); Estimated GFR-MDRD 49; Globulin 3.5 g/dL (2.4-3.5); Glucose 115 mg/dL (80-115); Potassium 4.3 mmol/L (3.5-5.1); Protein, Total 6.2 g/dL (5.8-8.1); Sodium 141 mmol/L (136-145)
[2019-08-13 07:22] LABS: %Basophils 0.7 % (0.0-1.0); %Eosinophils 5.7 % (0.0-10.0); %Lymphocytes 9.6 % (21.0-51.0); %Monocytes 12.8 % (0.0-10.0); %Neutrophils 71.2 % (42.0-75.0); Hemoglobin 8.4 g/dL (14.0-18.0); Mean Corpuscular HGB CONC 29.6 g/dL (32.0-36.0); Mean Corpuscular Hemoglobin 27.1 pg (27.0-31.0); Mean Corpuscular Volume 91.5 fL (78.0-98.0); Mean Platelet Volume 6.8 fL (7.4-10.4); Platelet Count 150 thou/uL (130-400); RBC Distribution Width 15.8 % (11.5-14.5); Red Blood Cell (RBC) Count 3.11 mill/uL (4.70-6.10); White Blood Cell (WBC) Count 6.1 thou/uL (4.8-10.8)
[2019-08-13 07:23] LABS: #Eosinphils 0.3 thou/uL (0.0-0.7); #Lymphocytes 0.6 thou/uL (1.20-3.40); #Monocytes 0.8 thou/uL (0.11-0.59); #Neutrophils 4.3 thou/uL (1.40-6.50)
[2019-08-13] MEDS ORDERED: FLU VACC TS2019-20(65YR UP)/PF 180 MCG/0.5 ML SYRINGE IM ONE (09:00)
[2019-08-13] MEDS: cefTRIAXone\\ROCEPHIN 2 GM in Sodium Chloride 0.9% 100 ML IVPB SCH ×2 (09:06→20:54)
[2019-08-13] MEDS: Amlodipine 5 MG TAB PO SCH (09:07)
[2019-08-13] MEDS: Potassium Chloride 20 MEQ TAB PO SCH (09:08)
[2019-08-13] MEDS: Bupropion 150 MG XL TAB PO SCH (09:08)
[2019-08-13] MEDS: Lisinopril 5 MG TAB PO SCH (09:08)
[2019-08-13] MEDS: Carvedilol 6.25 MG TAB PO SCH ×2 (09:09→20:56)
[2019-08-13] MEDS: Bumetanide 1 MG TAB PO SCH (09:09)
[2019-08-13] MEDS: Aspirin 81 mg Enteric Coated Tablet PO SCH (09:09)
[2019-08-13] MEDS: Apixaban 5 MG TAB PO SCH ×2 (09:09→20:56)
[2019-08-13] MEDS: Tamsulosin HCl 0.4 MG CAP PO SCH (09:09)
[2019-08-13] MEDS: Magnesium Oxide 400 MG TAB PO SCH (09:10)
[2019-08-13] MEDS: Niacin SR 500 MG CAP PO SCH (09:10)
[2019-08-13] MEDS: Arformoterol 15 MCG/2 ML NEB NEB SCH ×2 (09:10→20:56)
[2019-08-13] MEDS: Folic Acid 1 MG TAB PO SCH (09:10)
--- NOTE | 2019-08-13 11:26 | HP ---
PRIMARY CARE PHYSICIAN: Dr. Leon in [place]. FLAT LOCK OPERATOR: In [place], Dr. Teran. INFECTIOUS DISEASE: In [place], Dr. Doll. CARDIOVASCULAR SURGEON: 1. Filiberto Almonte in [facility] in [place]. 2. Dr. Arroyo, Cardiology in [place]. REASON FOR ADMISSION: To complete IV antibiotic therapy in [place] [facility]. HISTORY OF PRESENT ILLNESS: Mr. Castaneda is a 69-year-old male with past medical history of CAD, status post CABG; CHF; hypertension; HLD; aortic valve disease, status post recent bioprosthetic AVR and ascending aortic aneurysm repair; and ELIOT. He was recently diagnosed with enterococcus faecalis endocarditis, on ampicillin and gentamicin for several weeks. The patient was started on IV antibiotic in [facility] under the management of Infectious Disease, Dr. Doll, and newspaper illustrator, Dr. Teran. He was then transferred to [place] on 07/09/2019 to complete IV antibiotic therapy in swing bed. The patient had a repeat TTE on 07/26/[address] Teran in [place] that showed more dilatation of LVOT, cannot completely exclude perivalvular abscess. He was then transferred to [facility] on 07/26/2019 for further evaluation and possible surgical management. 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 No AV vegetations or dehiscences noted. The patient underwent redo sternotomy, debridement of aortic root abscess, and aortic root reconstruction with 25 mm Medtronic Freestyle aortic root bioprosthesis and revision of SVG to RPDA bypass graft with Dr. Mantilla on 08/06/2019. The patient also underwent right pigtail catheter placement with 1.5 L of serous pleural fluid drainage on 07/28/2019. Chest tubes were discontinued prior to discharge. The patient was continued on IV antibiotic and he is now transferred back to [place] [facility] to complete IV antibiotic 4 more weeks. Upon admission, the patient reports that he is feeling a lot better. He is complaining of occasional pain initially in the back, now on the mid chest from the operative site. Pain is mild and only notable with movement. We were told in the report that prior to discharge this morning, the patient had another episode of atrial fibrillation, thus the Eliquis was started back prior to discharge with instructions to continue as part of his current medications. The patient also reports that he has had some loose bowel movements lately and does not want to continue the stool softener at this time. Otherwise, the patient has been febrile, voiding freely, eating and drinking fine. No other issues reported at this time by the patient and by the spouse who was present at the time of examination. PAST MEDICAL HISTORY OR INTERVAL HISTORY: 1. On 07/04/2019, the patient was admitted to [facility] due to chest pain, shortness of breath, CHF exacerbation to rule out ACS. 2. On 07/09/2019, the patient was admitted to [facility] to complete antibiotic therapy for endocarditis. 3. On 07/26/2019, repeat MARLEY by Dr. Teran with impression that they cannot completely exclude perivalvular abscess, recommending to transfer to [facility] in [place] for further recommendations. 4. On 07/26/2019, transferred to [facility] in [place]. 5. 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 No AV vegetations or dehiscences noted. LVEF of 60%. 0.48. 6. Cardiac MRI with and without IV contrast completed on 07/27/19. LVEF 56%, with preserved systolic function LA enlargement, , Raised left and right atrial pressures. Large right pleural effusion and small left pleural effusion. 7. On 07/28/2019, status post right pigtail catheter placement with 1.5 L serous pleural fluid drainage. 8. On 07/28/2019, PET/CT/CTA scan completed.NO evidence of pulmonary embolism identified, 9. 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 No AV vegetations or dehiscence. On 08/02/2019, status post extraction. 10. On 08/06/2019, status post redo sternotomy, debridement of aortic root abscess and aortic root reconstruction with a 25 mm Medtronic freestyle aortic root bioprosthesis and revision of SVG to RPDA bypass graft with Dr. Mantilla. 11. Status post chest tubes discontinuation. 12. Other past medical history; atrial fibrillation, CHF, coronary artery disease, endocarditis, hypertension, dyslipidemia, COPD. Neuropathic pain; testosterone deficiency; ELIOT, on CPAP; diabetes type 2;osteoarthritis; and anxiety. PAST SURGICAL HISTORY: 1. On 01/31/2019, ascending aortic aneurysm repair with tissue aortic valve replacement. 2. On 01/31/2019, coronary artery bypass graft. 3. On 08/02/2019, extraction dental, surgeon, Ashley Monroe DDS, oral maxillofacial surgeon. Dental extraction of tooth #30 (right lower first molar) for Dental Abscess. 4. On 08/06/2019, repair of AATA with coronary reconstruction and N/A aortic root modeling by Dr. Mantilla, location, [facility] . Procedure total cardiopulmonary bypass with aorto bicaval cannulation, explantation of prior aortic valve, debridement of aortic root abscess, aortic root reconstruction with 25 mm Medtronic Freestyle aortic root bioprosthesis. 5. On 08/06/2019, replacement of aortic valve by Dr. Mantilla. Procedure, implanted Medtronic Freestyle 995 aortic root bioprosthesis 25 mm. Humera-Guard patch, 4 cm x 4 cm x 2, PPWs placed. 6. On 08/06/2019, sternotomy median transthoracic by Dr. Mantilla. Procedure redo sternotomy, mediastinal adhesiolysis. 7. On 08/06/2019, MARLEY by Dr. Mantilla. 8. 2D echo on 08/10/19, LVEF 55-60%, grade 1 diastolic dysfunction. LV is chamber size, LA size is severe enlarged ( >48 ml/m2). RV chamber size appears normal, Atrial septum,ishmael;. Mitral Valve annular calcification. Tricuspid Valve regurgitation. No pericardial effusion was visualized. 8. Status post CABG x2 and aortic valve replacement in January of [address] Dejesus. SOCIAL HISTORY: The patient is . is the primary caregiver and actively involved in the patient's current care. Smoking, former smoking, last attempt to quit 1983, been quitting since 35.8 years. Smokeless tobacco, former user. Alcohol use occasionally. Illicit drug use, denied. FAMILY HISTORY: Heart disease in father. ALLERGIES: NKDA. MEDICATIONS: 1. Amlodipine 10 mg p.o. daily. 2. Ampicillin 2 g intravenous q.6 scheduled. 3. Arformoterol 15 mcg nebulization b.i.d. 4. Aspirin 81 mg daily. 5. Bumetanide 1 mg b.i.d. 6. Carvedilol 6.25 mg b.i.d. 7. Ceftriaxone 2 g IV q.12. 8. Ipratropium 0.5 mg neb q.6. 9. Lisinopril 2.5 mg p.o. daily. 10. Potassium chloride 20 mEq oral daily. 11. Pravastatin 80 mg daily. 12. Tamsulosin 0.4 mg p.o. daily. 13. Senna 17.2 mg p.o. at bedtime. REVIEW OF SYSTEMS: GENERAL: Denies fever or chills. Reports general weakness and fatigue. HEENT: No acute visual changes or hearing changes. No cold symptoms. RESPIRATORY: Reports occasional shortness of breath/wheezing. No chronic cough. No sputum production. No bloody sputum. No pain with breathing. No active wheezing. CARDIO: reports intermittent anterior chest wall pain as per HPI. No chest heaviness. No cyanosis. Reports intermittent leg edema. No dyspnea on exertion. No paroxysmal nocturnal dyspnea. GI: Denies nausea, vomiting, or abdominal pain. Reports constipation, now with loose stools. No bloody stools. No rectal bleeding, melena, hematochezia, or hematemesis. GENITOURINARY: No dysuria, hematuria, frequency, urgency, or incontinence. No gross hematuria. MUSCULOSKELETAL: Reports occasional arthralgia. No joint swelling. No joint effusion. No erythema. NEUROLOGIC: No focal numbness. No focal weakness, with unsteady gait. PSYCH: No hallucinations. No suicidal thoughts or ideations or active depressive symptoms. Reports history of anxiety. SKIN: No pruritus. No jaundice. No other skin lesions aside from the current postoperative sites. PHYSICAL EXAMINATION: VITAL SIGNS: Blood pressure 107/62, temperature 98.2, pulse 104 and repeat 94, respirations 16, O2 saturations 96% on room air. Weight 177 pounds, height 5 feet 10 inches. GENERAL: The patient is awake, alert, and oriented x3. Comfortably resting in bed. is at bedside. No acute signs of distress. HEENT: Normocephalic, atraumatic. PERRL. Intact EOM. Nonicteric sclerae. Oral mucosa is moist. Nares are clear. NECK: Supple. No LAD. No signs of meningismus. No JVD. No carotid bruits. CHEST: Normal excursion. Nonlabored breathing. No intercostal retractions. Positive postoperative incision on anterior wall, dry and healing in appearance. No exudates. No drainage. No surrounding erythema. Nontender to touch. PULMONARY: Chest, good air movement. Clear to auscultation bilaterally. No rales. No wheezes. No rhonchi. No crackles. ABDOMEN: Flat, nondistended, and nontender. No rebound or guarding. Negative CVA tenderness bilaterally. EXTREMITIES: No clubbing, no cyanosis, with trace pitting bipedal edema up to the lower tibia. Negative Homans signs bilaterally. NEUROLOGIC: Nonfocal. Gait unsteady. PSYCH: Appears calm with appropriate demeanor and affect, interactive. OTHER LABS: hemoglobin A1c 5.3; TSH 3.20, LDL 108, Triglycerides 110 ; HDL 27; Cholesterol 157, INR 1.5; PT 17.2, PTT 32.2. on 08/06/19. Hemoglobin 8.8, Hematocrit 26, albumin 2.9 AST 50, ALT 26; AFB smear- negative on 08/07/19; WBC 12.9, Hgb 7.3; Hematocrit 23.4, phosphorus 3.8 on 08/08/19; Fungal smear negative on 08/10/19. Cytology of Pleural fluid reactive mesothelial cells in a background of severe acute inflammation. on 07/28/19. On 08/12/19, WBC on 5.5; hemoglobin 8.3; Hematocrit 26.4, platelets 136, sodium 135; Potassium 3.4 , eGFR 48. Chest Xray on Right sided PICC line in place, Small bilateral effusions persist. Infiltrate/atelectatic changes in the right upper lobe. Mild basilar atelectasis. Normal vascularity. ASSESSMENT: 1. Endocarditis with enterococcus faecalis. a. MARLEY 07/26/2019, showed more dilatation at LVOT. b. 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 No vegetations or dehiscences. c. Requiring watermaster use of Intravenous antibiotic therapy. 2. Status post redo sternotomy, debridement of aortic root abscess and aortic root reconstruction with a 25 mm Medtronic Freestyle aortic root bioprosthesis and revision of SVG to RPDA bypass graft with Dr. Mantilla on 08/06/2019. 3. Aortic valve disease, status post recent bioprosthetic AVR. 4. Status post ascending aortic aneurysm repair. 5. Coronary artery disease, status post coronary artery bypass grafting, status post revision of SVG to RPDA bypass graft with Dr. Mantilla on 08/06/2019. 6. Congestive heart failure, LVEF 55-60%, without systolic dysfunction . Compensated. 7. Hypertension.Controlled. 8. Chronic atrial fibrillation, rate controlled, on long-term use of anticoagulant/Eliquis. 9. Hyperlipidemia. 10. Pleural effusion, right, status post pigtail catheter placement with 1.5 L serous pleural fluid drainage on 07/28/2019, status post chest tube removal. 11. Obstructive sleep apnea, CPAP dependent. 12. Physical Deconditioning/general weakness. 13. Abnormality of gait and mobility. PLAN: 1. The patient is admitted to [facility] [facility] to continue IV antibiotic therapy with ampicillin and ceftriaxone for 4 more weeks as scheduled. 2. The patient will be referred to PT and OT while in swing bed for strengthening. Plan is to continue cardiac rehab as outpatient post-discharge from skilled rehab. 3. We will continue all current medications as per list. We will hold of stool softener at this point per the patient's request secondary to reported loose bowel movements from using stool softeners daily. We will definitely continue to monitor the patient and use stool softener as p.r.n. 4. GI prophylaxis with PPI. Routine labs series with CBC, renal function, CRP, ESR. 5. The patient to follow up with Dr. Doll on 08/[address] Teran on at [place]. We will schedule an appointment with Dr. Mantilla for followup appointment as well per recommendations or reviews instructions. 6. We will monitor the patient closely. We will coordinate care with Dr. Teran and Dr. Doll anytime with acute changes. 7. Routine wound care.Changes of dressing daily. 8. Code status, the patient reports FULL CODE. Further recommendations depending on the hospital course. Job ID: [id number] [facility]
[2019-08-13] MEDS: Albuterol Sulfate 2.5 mg/3 ml Neb NEB PRN (12:40)
[2019-08-13] MEDS: Acetaminophen/Codeine 30-300mg Tablet PO PRN (18:30)
[2019-08-13] MEDS: Atorvastatin Calcium 10 MG TAB PO SCH (20:56)
[2019-08-14] MEDS: Acetaminophen/Codeine 30-300mg Tablet PO PRN (02:55)
[2019-08-14] MEDS: Ampicillin 2 GM in Sodium Chloride 0.9% 100 ML IVPB SCH ×3 (05:49→17:55)
[2019-08-14] MEDS: Ipratropium Bromide 2.5 ml Neb NEB SCH ×3 (05:49→17:55)
[2019-08-14] MEDS: cefTRIAXone\\ROCEPHIN 2 GM in Sodium Chloride 0.9% 100 ML IVPB SCH ×2 (08:33→21:06)
[2019-08-14] MEDS: Arformoterol 15 MCG/2 ML NEB NEB SCH ×2 (08:34→21:06)
[2019-08-14] MEDS: Potassium Chloride 20 MEQ TAB PO SCH (08:35)
[2019-08-14] MEDS: Niacin SR 500 MG CAP PO SCH (08:35)
[2019-08-14] MEDS: Amlodipine 5 MG TAB PO SCH (08:35)
[2019-08-14] MEDS: Folic Acid 1 MG TAB PO SCH (08:38)
[2019-08-14] MEDS: Aspirin 81 mg Enteric Coated Tablet PO SCH (08:38)
[2019-08-14] MEDS: Apixaban 5 MG TAB PO SCH ×2 (08:38→21:07)
[2019-08-14] MEDS: Bupropion 150 MG XL TAB PO SCH (08:38)
[2019-08-14] MEDS: Carvedilol 6.25 MG TAB PO SCH ×2 (08:38→21:07)
[2019-08-14] MEDS: Magnesium Oxide 400 MG TAB PO SCH (08:38)
[2019-08-14] MEDS: Tamsulosin HCl 0.4 MG CAP PO SCH (08:38)
[2019-08-14] MEDS: Bumetanide 1 MG TAB PO SCH (08:39)
[2019-08-14] MEDS: Lisinopril 5 MG TAB PO SCH (08:39)
[2019-08-14] MEDS: Atorvastatin Calcium 10 MG TAB PO SCH (21:06)
[2019-08-15] MEDS: Ampicillin 2 GM in Sodium Chloride 0.9% 100 ML IVPB SCH ×4 (01:40→18:03)
[2019-08-15] MEDS: Ipratropium Bromide 2.5 ml Neb NEB SCH ×4 (01:42→18:04)
[2019-08-15] MEDS: Potassium Chloride 20 MEQ TAB PO SCH (08:34)
[2019-08-15] MEDS: Amlodipine 5 MG TAB PO SCH (08:36)
[2019-08-15] MEDS: Apixaban 5 MG TAB PO SCH ×2 (08:38→20:58)
[2019-08-15] MEDS: Aspirin 81 mg Enteric Coated Tablet PO SCH (08:39)
[2019-08-15] MEDS: Arformoterol 15 MCG/2 ML NEB NEB SCH ×2 (08:39→20:59)
[2019-08-15] MEDS: Bumetanide 1 MG TAB PO SCH (08:40)
[2019-08-15] MEDS: Bupropion 150 MG XL TAB PO SCH (08:41)
[2019-08-15] MEDS: Niacin SR 500 MG CAP PO SCH (08:41)
[2019-08-15] MEDS: Carvedilol 6.25 MG TAB PO SCH ×2 (08:41→20:58)
[2019-08-15] MEDS: Tamsulosin HCl 0.4 MG CAP PO SCH (08:43)
[2019-08-15] MEDS: Lisinopril 5 MG TAB PO SCH (08:44)
[2019-08-15] MEDS: Folic Acid 1 MG TAB PO SCH (08:44)
[2019-08-15] MEDS: cefTRIAXone\\ROCEPHIN 2 GM in Sodium Chloride 0.9% 100 ML IVPB SCH ×2 (08:45→20:56)
[2019-08-15] MEDS: Magnesium Oxide 400 MG TAB PO SCH (08:45)
[2019-08-15] MEDS: Albuterol Sulfate 2.5 mg/3 ml Neb NEB PRN (12:43)
[2019-08-15] MEDS: Acetaminophen/Codeine 30-300mg Tablet PO PRN (18:17)
[2019-08-15] MEDS: Atorvastatin Calcium 10 MG TAB PO SCH (20:58)
[2019-08-16] MEDS: Ampicillin 2 GM in Sodium Chloride 0.9% 100 ML IVPB SCH ×5 (00:03→23:27)
[2019-08-16] MEDS: Ipratropium Bromide 2.5 ml Neb NEB SCH ×4 (00:03→17:59)
[2019-08-16] MEDS: Potassium Chloride 20 MEQ TAB PO SCH ×2 (09:04→09:29)
[2019-08-16] MEDS: Bumetanide 1 MG TAB PO SCH (09:29)
[2019-08-16] MEDS: Apixaban 5 MG TAB PO SCH ×2 (09:30→20:20)
[2019-08-16] MEDS: Carvedilol 6.25 MG TAB PO SCH ×2 (09:30→20:21)
[2019-08-16] MEDS: Magnesium Oxide 400 MG TAB PO SCH (09:30)
[2019-08-16] MEDS: Folic Acid 1 MG TAB PO SCH (09:30)
[2019-08-16] MEDS: Aspirin 81 mg Enteric Coated Tablet PO SCH (09:30)
[2019-08-16] MEDS: Tamsulosin HCl 0.4 MG CAP PO SCH (09:30)
[2019-08-16] MEDS: Amlodipine 5 MG TAB PO SCH (09:30)
[2019-08-16] MEDS: Niacin SR 500 MG CAP PO SCH (09:30)
[2019-08-16] MEDS: Bupropion 150 MG XL TAB PO SCH (09:31)
[2019-08-16] MEDS: Arformoterol 15 MCG/2 ML NEB NEB SCH ×2 (09:31→20:22)
[2019-08-16] MEDS: Lisinopril 5 MG TAB PO SCH (09:31)
[2019-08-16] MEDS: cefTRIAXone\\ROCEPHIN 2 GM in Sodium Chloride 0.9% 100 ML IVPB SCH ×2 (09:32→20:17)
[2019-08-16] MEDS ORDERED: Acetaminophen 325 MG TAB PO PRN (11:20)
[2019-08-16] MEDS: Atorvastatin Calcium 10 MG TAB PO SCH (20:00)
[2019-08-16] MEDS: Acetaminophen/Codeine 30-300mg Tablet PO PRN (21:01)
[2019-08-17] MEDS: Ipratropium Bromide 2.5 ml Neb NEB SCH ×2 (00:04)
[2019-08-17] MEDS: Ampicillin 2 GM in Sodium Chloride 0.9% 100 ML IVPB SCH ×4 (05:13→23:32)
[2019-08-17] MEDS: cefTRIAXone\\ROCEPHIN 2 GM in Sodium Chloride 0.9% 100 ML IVPB SCH ×2 (07:55→21:21)
[2019-08-17] MEDS: Bupropion 150 MG XL TAB PO SCH (08:51)
[2019-08-17] MEDS: Magnesium Oxide 400 MG TAB PO SCH (08:51)
[2019-08-17] MEDS: Aspirin 81 mg Enteric Coated Tablet PO SCH (08:51)
[2019-08-17] MEDS: Tamsulosin HCl 0.4 MG CAP PO SCH (08:51)
[2019-08-17] MEDS: Niacin SR 500 MG CAP PO SCH (08:51)
[2019-08-17] MEDS: Folic Acid 1 MG TAB PO SCH (08:51)
[2019-08-17] MEDS: Potassium Chloride 20 MEQ TAB PO SCH (08:51)
[2019-08-17] MEDS: Bumetanide 1 MG TAB PO SCH (08:51)
[2019-08-17] MEDS: Amlodipine 5 MG TAB PO SCH (08:52)
[2019-08-17] MEDS: Carvedilol 6.25 MG TAB PO SCH ×2 (08:52→21:19)
[2019-08-17] MEDS: Arformoterol 15 MCG/2 ML NEB NEB SCH ×2 (08:52→21:35)
[2019-08-17] MEDS: Apixaban 5 MG TAB PO SCH ×2 (08:52→21:18)
[2019-08-17] MEDS: Lisinopril 5 MG TAB PO SCH (08:53)
[2019-08-17] MEDS ORDERED: Potassium Chloride 10 MEQ TAB PO SCH (09:15)
[2019-08-17] MEDS: Atorvastatin Calcium 10 MG TAB PO SCH (21:18)
[2019-08-18] MEDS ORDERED: Sterile Water 10 ML VIAL IVP SCH (03:13)
[2019-08-18] MEDS ORDERED: Activase 2 MG VIAL CATH SCH (03:13)
[2019-08-18] MEDS: Ampicillin 2 GM in Sodium Chloride 0.9% 100 ML IVPB SCH ×4 (06:10→23:38)
[2019-08-18] MEDS: Carvedilol 6.25 MG TAB PO SCH ×2 (09:09→20:18)
[2019-08-18] MEDS: Folic Acid 1 MG TAB PO SCH (09:09)
[2019-08-18] MEDS: Magnesium Oxide 400 MG TAB PO SCH (09:09)
[2019-08-18] MEDS: Aspirin 81 mg Enteric Coated Tablet PO SCH (09:09)
[2019-08-18] MEDS: Potassium Chloride 10 MEQ TAB PO SCH (09:09)
[2019-08-18] MEDS: Niacin SR 500 MG CAP PO SCH (09:09)
[2019-08-18] MEDS: Bumetanide 1 MG TAB PO SCH (09:09)
[2019-08-18] MEDS: Bupropion 150 MG XL TAB PO SCH (09:09)
[2019-08-18] MEDS: cefTRIAXone\\ROCEPHIN 2 GM in Sodium Chloride 0.9% 100 ML IVPB SCH ×2 (09:10→20:07)
[2019-08-18] MEDS: Arformoterol 15 MCG/2 ML NEB NEB SCH ×2 (09:10→20:09)
[2019-08-18] MEDS: Tamsulosin HCl 0.4 MG CAP PO SCH (09:10)
[2019-08-18] MEDS: Apixaban 5 MG TAB PO SCH ×2 (09:10→20:09)
[2019-08-18] MEDS: Amlodipine 5 MG TAB PO SCH (12:23)
[2019-08-18] MEDS: Lisinopril 5 MG TAB PO SCH (12:24)
[2019-08-18] MEDS: Atorvastatin Calcium 10 MG TAB PO SCH (20:08)
[2019-08-18] MEDS: Acetaminophen/Codeine 30-300mg Tablet PO PRN (23:43)
[2019-08-19] MEDS: Ampicillin 2 GM in Sodium Chloride 0.9% 100 ML IVPB SCH ×4 (05:49→23:31)
[2019-08-19] MEDS: Arformoterol 15 MCG/2 ML NEB NEB SCH ×2 (08:38→20:20)
[2019-08-19] MEDS: cefTRIAXone\\ROCEPHIN 2 GM in Sodium Chloride 0.9% 100 ML IVPB SCH ×2 (08:38→20:16)
[2019-08-19] MEDS: Tamsulosin HCl 0.4 MG CAP PO SCH (08:43)
[2019-08-19] MEDS: Bupropion 150 MG XL TAB PO SCH (08:43)
[2019-08-19] MEDS: Potassium Chloride 10 MEQ TAB PO SCH (08:43)
[2019-08-19] MEDS: Niacin SR 500 MG CAP PO SCH (08:43)
[2019-08-19] MEDS: Folic Acid 1 MG TAB PO SCH (08:44)
[2019-08-19] MEDS: Amlodipine 5 MG TAB PO SCH (08:44)
[2019-08-19] MEDS: Lisinopril 5 MG TAB PO SCH (08:46)
[2019-08-19] MEDS: Apixaban 5 MG TAB PO SCH ×2 (08:46→20:15)
[2019-08-19] MEDS: Carvedilol 6.25 MG TAB PO SCH ×2 (08:47→20:16)
[2019-08-19] MEDS: Magnesium Oxide 400 MG TAB PO SCH (08:47)
[2019-08-19] MEDS: Aspirin 81 mg Enteric Coated Tablet PO SCH (08:47)
[2019-08-19] MEDS: Bumetanide 1 MG TAB PO SCH (08:47)
[2019-08-19] MEDS: Acetaminophen/Codeine 30-300mg Tablet PO PRN (20:13)
[2019-08-19] MEDS: Atorvastatin Calcium 10 MG TAB PO SCH (20:15)
[2019-08-20] MEDS: Ampicillin 2 GM in Sodium Chloride 0.9% 100 ML IVPB SCH ×4 (05:55→23:57)
[2019-08-20] MEDS: Potassium Chloride 10 MEQ TAB PO SCH (08:27)
[2019-08-20] MEDS: Folic Acid 1 MG TAB PO SCH (08:27)
[2019-08-20] MEDS: Bumetanide 1 MG TAB PO SCH (08:28)
[2019-08-20] MEDS: Apixaban 5 MG TAB PO SCH ×2 (08:28→21:18)
[2019-08-20] MEDS: Bupropion 150 MG XL TAB PO SCH (08:28)
[2019-08-20] MEDS: Magnesium Oxide 400 MG TAB PO SCH (08:28)
[2019-08-20] MEDS: Aspirin 81 mg Enteric Coated Tablet PO SCH (08:28)
[2019-08-20] MEDS: Tamsulosin HCl 0.4 MG CAP PO SCH (08:28)
[2019-08-20] MEDS: Carvedilol 6.25 MG TAB PO SCH (08:29)
[2019-08-20] MEDS: Niacin SR 500 MG CAP PO SCH (08:29)
[2019-08-20] MEDS: Arformoterol 15 MCG/2 ML NEB NEB SCH ×2 (08:29→21:19)
[2019-08-20] MEDS: Amlodipine 5 MG TAB PO SCH (08:30)
[2019-08-20] MEDS: Lisinopril 5 MG TAB PO SCH (08:31)
[2019-08-20] MEDS: cefTRIAXone\\ROCEPHIN 2 GM in Sodium Chloride 0.9% 100 ML IVPB SCH ×2 (08:31→21:19)
[2019-08-20 09:23] LABS: #Eosinphils 0.4 thou/uL (0.0-0.7); #Lymphocytes 0.6 thou/uL (1.20-3.40); #Monocytes 0.7 thou/uL (0.11-0.59); #Neutrophils 4.6 thou/uL (1.40-6.50); %Basophils 0.6 % (0.0-1.0); %Eosinophils 5.7 % (0.0-10.0); %Lymphocytes 9.1 % (21.0-51.0); %Neutrophils 73.6 % (42.0-75.0); Hemoglobin 7.3 g/dL (14.0-18.0); Mean Corpuscular Hemoglobin 27.3 pg (27.0-31.0); Mean Corpuscular Volume 91.1 fL (78.0-98.0); Mean Platelet Volume 6.3 fL (7.4-10.4); Platelet Count 233 thou/uL (130-400); RBC Distribution Width 16.2 % (11.5-14.5); Red Blood Cell (RBC) Count 2.67 mill/uL (4.70-6.10); White Blood Cell (WBC) Count 6.2 thou/uL (4.8-10.8)
[2019-08-20 09:50] LABS: ALT (SGPT) 26 U/L (8-55); AST (SGOT) 20 U/L (5-34); Albumin 2.9 g/dL (3.4-4.8); Alkaline Phosphatase 97 U/L (40-110); Anion Gap 14 mmol/L (10-20); BUN (Urea Nitrogen) 14 mg/dL (8.4-25.7); Bilirubin, Total 0.3 mg/dL (0.2-1.2); CRP (Inflammatory) 6.36 mg/dL (= or < 0.5); Calc. Creatinine Clearance 53 mL/min (70-130); Calcium 8.9 mg/dL (7.8-10.44); Carbon Dioxide 27 mmol/L (23-31); Chloride 100 mmol/L (98-107); Estimated GFR-MDRD 47; Globulin 3.7 g/dL (2.4-3.5); Glucose 140 mg/dL (80-115); Potassium 3.9 mmol/L (3.5-5.1); Protein, Total 6.6 g/dL (5.8-8.1); Sodium 137 mmol/L (136-145)
[2019-08-20] MEDS: Ferrous Sulfate 325 MG TAB PO SCH (17:56)
[2019-08-20] MEDS: Carvedilol 3.125 MG TAB PO SCH (17:56)
[2019-08-20] MEDS: Atorvastatin Calcium 10 MG TAB PO SCH (21:19)
[2019-08-20] MEDS: Acetaminophen/Codeine 30-300mg Tablet PO PRN (21:30)
[2019-08-21] MEDS: Ampicillin 2 GM in Sodium Chloride 0.9% 100 ML IVPB SCH ×4 (05:16→23:54)
[2019-08-21 07:16] LABS: Hemoglobin 7.5 g/dL (14.0-18.0)
[2019-08-21] MEDS: Niacin SR 500 MG CAP PO SCH (07:56)
[2019-08-21] MEDS: Potassium Chloride 10 MEQ TAB PO SCH (07:56)
[2019-08-21] MEDS: Bumetanide 1 MG TAB PO SCH (07:56)
[2019-08-21] MEDS: Apixaban 5 MG TAB PO SCH ×2 (07:57→20:00)
[2019-08-21] MEDS: Folic Acid 1 MG TAB PO SCH (07:57)
[2019-08-21] MEDS: Tamsulosin HCl 0.4 MG CAP PO SCH (07:57)
[2019-08-21] MEDS: Carvedilol 3.125 MG TAB PO SCH ×2 (07:58→18:07)
[2019-08-21] MEDS: Aspirin 81 mg Enteric Coated Tablet PO SCH (07:58)
[2019-08-21] MEDS: Bupropion 150 MG XL TAB PO SCH (07:58)
[2019-08-21] MEDS: Magnesium Oxide 400 MG TAB PO SCH (07:58)
[2019-08-21] MEDS: Ferrous Sulfate 325 MG TAB PO SCH ×2 (07:58→18:07)
[2019-08-21] MEDS: Arformoterol 15 MCG/2 ML NEB NEB SCH ×2 (09:01→20:02)
[2019-08-21] MEDS: cefTRIAXone\\ROCEPHIN 2 GM in Sodium Chloride 0.9% 100 ML IVPB SCH ×2 (09:01→20:02)
[2019-08-21] MEDS: Amlodipine 5 MG TAB PO SCH (10:10)
[2019-08-21] MEDS: Lisinopril 5 MG TAB PO SCH (12:06)
[2019-08-21] MEDS: Acetaminophen/Codeine 30-300mg Tablet PO PRN (19:59)
[2019-08-21] MEDS: Atorvastatin Calcium 10 MG TAB PO SCH (20:01)
[2019-08-22] MEDS: Ampicillin 2 GM in Sodium Chloride 0.9% 100 ML IVPB SCH ×4 (05:45→23:18)
[2019-08-22] MEDS: Lisinopril 5 MG TAB PO SCH (09:00)
[2019-08-22] MEDS: Folic Acid 1 MG TAB PO SCH (09:38)
[2019-08-22] MEDS: Carvedilol 3.125 MG TAB PO SCH ×2 (09:38→17:55)
[2019-08-22] MEDS: Ferrous Sulfate 325 MG TAB PO SCH ×2 (09:38→17:55)
[2019-08-22] MEDS: Niacin SR 500 MG CAP PO SCH (09:38)
[2019-08-22] MEDS: Aspirin 81 mg Enteric Coated Tablet PO SCH (09:38)
[2019-08-22] MEDS: Magnesium Oxide 400 MG TAB PO SCH (09:38)
[2019-08-22] MEDS: Bupropion 150 MG XL TAB PO SCH (09:38)
[2019-08-22] MEDS: Tamsulosin HCl 0.4 MG CAP PO SCH (09:39)
[2019-08-22] MEDS: Apixaban 5 MG TAB PO SCH ×2 (09:39→20:17)
[2019-08-22] MEDS: Amlodipine 5 MG TAB PO SCH (09:39)
[2019-08-22] MEDS: Bumetanide 1 MG TAB PO SCH (09:39)
[2019-08-22] MEDS: Potassium Chloride 10 MEQ TAB PO SCH (09:39)
[2019-08-22] MEDS: Arformoterol 15 MCG/2 ML NEB NEB SCH ×2 (09:39→20:18)
[2019-08-22] MEDS: cefTRIAXone\\ROCEPHIN 2 GM in Sodium Chloride 0.9% 100 ML IVPB SCH ×2 (09:39→20:16)
[2019-08-22] MEDS: Atorvastatin Calcium 10 MG TAB PO SCH (20:18)
[2019-08-22] MEDS: Acetaminophen/Codeine 30-300mg Tablet PO PRN (20:42)
[2019-08-23] MEDS: Ampicillin 2 GM in Sodium Chloride 0.9% 100 ML IVPB SCH ×4 (05:03→23:08)
[2019-08-23] MEDS: cefTRIAXone\\ROCEPHIN 2 GM in Sodium Chloride 0.9% 100 ML IVPB SCH ×2 (08:19→20:18)
[2019-08-23] MEDS: Arformoterol 15 MCG/2 ML NEB NEB SCH ×2 (08:21→20:17)
[2019-08-23] MEDS: Potassium Chloride 10 MEQ TAB PO SCH (08:22)
[2019-08-23] MEDS: Bumetanide 1 MG TAB PO SCH (08:22)
[2019-08-23] MEDS: Carvedilol 3.125 MG TAB PO SCH ×2 (08:23→17:10)
[2019-08-23] MEDS: Folic Acid 1 MG TAB PO SCH (08:23)
[2019-08-23] MEDS: Ferrous Sulfate 325 MG TAB PO SCH ×2 (08:23→17:10)
[2019-08-23] MEDS: Bupropion 150 MG XL TAB PO SCH (08:23)
[2019-08-23] MEDS: Tamsulosin HCl 0.4 MG CAP PO SCH (08:23)
[2019-08-23] MEDS: Amlodipine 5 MG TAB PO SCH (08:24)
[2019-08-23] MEDS: Aspirin 81 mg Enteric Coated Tablet PO SCH (08:24)
[2019-08-23] MEDS: Lisinopril 5 MG TAB PO SCH (08:24)
[2019-08-23] MEDS: Magnesium Oxide 400 MG TAB PO SCH (08:24)
[2019-08-23] MEDS: Niacin SR 500 MG CAP PO SCH (08:24)
[2019-08-23] MEDS: Apixaban 5 MG TAB PO SCH (08:25)
[2019-08-23 09:48] LABS: Hemoglobin 7.4 g/dL (14.0-18.0); Mean Corpuscular HGB CONC 29.4 g/dL (32.0-36.0); Mean Corpuscular Hemoglobin 26.9 pg (27.0-31.0); Mean Corpuscular Volume 91.4 fL (78.0-98.0); Mean Platelet Volume 6.3 fL (7.4-10.4); Platelet Count 233 thou/uL (130-400); RBC Distribution Width 16.3 % (11.5-14.5); Red Blood Cell (RBC) Count 2.74 mill/uL (4.70-6.10); White Blood Cell (WBC) Count 5.1 thou/uL (4.8-10.8)
[2019-08-23] MEDS ORDERED: diphenhydrAMINE 25 MG CAP PO SCH (13:30)
[2019-08-23] MEDS ORDERED: Acetaminophen 325 MG TAB PO SCH (13:30)
--- NOTE | 2019-08-23 15:23 | RAD ---
PA AND LATERAL CHEST: HISTORY: Follow up of pleural effusion. COMPARISON: 06/04/2019 07/26/2019 FINDINGS: Heart size is at the upper limits of normal with postop sternotomy change. The right-sided effusion h as resolved since the prior exam. There is still some minimal residual blunting to the right costophr enic angle. There has also been development of some blunting to the left costophrenic angle on today' s study and more prominent changes in the posterior sulcus which appear to be on the left, suggesting there has been development of small left effusion. IMPRESSION: Almost complete resolution of the right-sided effusion with development of a small left pleural effus ion. POS: [facility]
[2019-08-23] MEDS: Acetaminophen/Codeine 30-300mg Tablet PO PRN (20:16)
[2019-08-23] MEDS: Atorvastatin Calcium 10 MG TAB PO SCH (20:19)
[2019-08-24] MEDS: Ampicillin 2 GM in Sodium Chloride 0.9% 100 ML IVPB SCH ×3 (04:59→17:29)
[2019-08-24 05:47] LABS: Hemoglobin 8.6 g/dL (14.0-18.0)
[2019-08-24] MEDS: cefTRIAXone\\ROCEPHIN 2 GM in Sodium Chloride 0.9% 100 ML IVPB SCH ×2 (08:33→21:08)
[2019-08-24] MEDS: Arformoterol 15 MCG/2 ML NEB NEB SCH ×2 (08:33→21:05)
[2019-08-24] MEDS: Bumetanide 1 MG TAB PO SCH (08:36)
[2019-08-24] MEDS: Potassium Chloride 10 MEQ TAB PO SCH (08:37)
[2019-08-24] MEDS: Carvedilol 3.125 MG TAB PO SCH ×2 (08:37→17:29)
[2019-08-24] MEDS: Lisinopril 5 MG TAB PO SCH (08:37)
[2019-08-24] MEDS: Folic Acid 1 MG TAB PO SCH (08:38)
[2019-08-24] MEDS: Bupropion 150 MG XL TAB PO SCH (08:38)
[2019-08-24] MEDS: Ferrous Sulfate 325 MG TAB PO SCH ×2 (08:38→17:29)
[2019-08-24] MEDS: Aspirin 81 mg Enteric Coated Tablet PO SCH (08:38)
[2019-08-24] MEDS: Niacin SR 500 MG CAP PO SCH (08:38)
[2019-08-24] MEDS: Magnesium Oxide 400 MG TAB PO SCH (08:38)
[2019-08-24] MEDS: Amlodipine 5 MG TAB PO SCH (08:38)
[2019-08-24] MEDS: Atorvastatin Calcium 10 MG TAB PO SCH (21:05)
[2019-08-24] MEDS: Acetaminophen/Codeine 30-300mg Tablet PO PRN (21:06)
[2019-08-25] MEDS: Ampicillin 2 GM in Sodium Chloride 0.9% 100 ML IVPB SCH ×4 (00:10→17:16)
[2019-08-25] MEDS: Ferrous Sulfate 325 MG TAB PO SCH ×2 (08:26→16:16)
[2019-08-25] MEDS: Carvedilol 3.125 MG TAB PO SCH ×2 (08:26→16:17)
[2019-08-25] MEDS: Potassium Chloride 10 MEQ TAB PO SCH (08:26)
[2019-08-25] MEDS: Arformoterol 15 MCG/2 ML NEB NEB SCH ×2 (08:27→22:01)
[2019-08-25] MEDS: Aspirin 81 mg Enteric Coated Tablet PO SCH (08:27)
[2019-08-25] MEDS: Bumetanide 1 MG TAB PO SCH (08:27)
[2019-08-25] MEDS: Bupropion 150 MG XL TAB PO SCH (08:29)
[2019-08-25] MEDS: Niacin SR 500 MG CAP PO SCH (08:29)
[2019-08-25] MEDS: Magnesium Oxide 400 MG TAB PO SCH (08:29)
[2019-08-25] MEDS: Folic Acid 1 MG TAB PO SCH (08:29)
[2019-08-25] MEDS: cefTRIAXone\\ROCEPHIN 2 GM in Sodium Chloride 0.9% 100 ML IVPB SCH ×2 (08:30→22:01)
[2019-08-25] MEDS: Amlodipine 5 MG TAB PO SCH (09:10)
[2019-08-25] MEDS: Lisinopril 5 MG TAB PO SCH (09:11)
[2019-08-25] MEDS: Atorvastatin Calcium 10 MG TAB PO SCH (22:02)
[2019-08-25] MEDS: Acetaminophen/Codeine 30-300mg Tablet PO PRN (22:02)
[2019-08-26] MEDS: Ampicillin 2 GM in Sodium Chloride 0.9% 100 ML IVPB SCH ×4 (00:21→17:47)
[2019-08-26] MEDS: Arformoterol 15 MCG/2 ML NEB NEB SCH ×2 (07:51→21:49)
[2019-08-26] MEDS: Amlodipine 5 MG TAB PO SCH (08:39)
[2019-08-26] MEDS: Carvedilol 3.125 MG TAB PO SCH ×2 (08:39→17:48)
[2019-08-26] MEDS: Bupropion 150 MG XL TAB PO SCH (08:39)
[2019-08-26] MEDS: Magnesium Oxide 400 MG TAB PO SCH (08:39)
[2019-08-26] MEDS: Bumetanide 1 MG TAB PO SCH (08:39)
[2019-08-26] MEDS: Niacin SR 500 MG CAP PO SCH (08:39)
[2019-08-26] MEDS: Ferrous Sulfate 325 MG TAB PO SCH ×2 (08:39→17:48)
[2019-08-26] MEDS: Aspirin 81 mg Enteric Coated Tablet PO SCH (08:40)
[2019-08-26] MEDS: Potassium Chloride 10 MEQ TAB PO SCH (08:40)
[2019-08-26] MEDS: Folic Acid 1 MG TAB PO SCH (08:40)
[2019-08-26] MEDS: cefTRIAXone\\ROCEPHIN 2 GM in Sodium Chloride 0.9% 100 ML IVPB SCH ×2 (08:40→21:51)
[2019-08-26] MEDS: Lisinopril 5 MG TAB PO SCH (08:40)
[2019-08-26] MEDS: Acetaminophen/Codeine 30-300mg Tablet PO PRN ×2 (17:52→21:50)
[2019-08-26] MEDS: Atorvastatin Calcium 10 MG TAB PO SCH (21:49)
[2019-08-27] MEDS: Ampicillin 2 GM in Sodium Chloride 0.9% 100 ML IVPB SCH ×5 (00:49→23:41)
[2019-08-27] MEDS: Folic Acid 1 MG TAB PO SCH (09:16)
[2019-08-27] MEDS: Potassium Chloride 10 MEQ TAB PO SCH (09:16)
[2019-08-27] MEDS: Bupropion 150 MG XL TAB PO SCH (09:16)
[2019-08-27] MEDS: Bumetanide 1 MG TAB PO SCH (09:17)
[2019-08-27] MEDS: Lisinopril 5 MG TAB PO SCH (09:17)
[2019-08-27] MEDS: Aspirin 81 mg Enteric Coated Tablet PO SCH (09:18)
[2019-08-27] MEDS: Niacin SR 500 MG CAP PO SCH (09:18)
[2019-08-27] MEDS: Carvedilol 3.125 MG TAB PO SCH ×2 (09:18→18:08)
[2019-08-27] MEDS: Amlodipine 5 MG TAB PO SCH (09:18)
[2019-08-27] MEDS: Ferrous Sulfate 325 MG TAB PO SCH ×2 (09:18→18:08)
[2019-08-27 09:19] LABS: #Eosinphils 0.4 thou/uL (0.0-0.7); #Lymphocytes 0.6 thou/uL (1.20-3.40); #Monocytes 0.6 thou/uL (0.11-0.59); #Neutrophils 3.8 thou/uL (1.40-6.50); %Basophils 0.8 % (0.0-1.0); %Eosinophils 6.7 % (0.0-10.0); %Lymphocytes 10.9 % (21.0-51.0); %Monocytes 11.4 % (0.0-10.0); %Neutrophils 70.1 % (42.0-75.0); Hemoglobin 9.2 g/dL (14.0-18.0); Mean Corpuscular HGB CONC 29.9 g/dL (32.0-36.0); Mean Corpuscular Hemoglobin 27.7 pg (27.0-31.0); Mean Corpuscular Volume 92.7 fL (78.0-98.0); Mean Platelet Volume 6.4 fL (7.4-10.4); Platelet Count 255 thou/uL (130-400); RBC Distribution Width 15.7 % (11.5-14.5); Red Blood Cell (RBC) Count 3.32 mill/uL (4.70-6.10); White Blood Cell (WBC) Count 5.4 thou/uL (4.8-10.8)
[2019-08-27] MEDS: Arformoterol 15 MCG/2 ML NEB NEB SCH ×2 (09:19→20:52)
[2019-08-27] MEDS: cefTRIAXone\\ROCEPHIN 2 GM in Sodium Chloride 0.9% 100 ML IVPB SCH ×2 (09:19→20:53)
[2019-08-27] MEDS: Magnesium Oxide 400 MG TAB PO SCH (09:20)
[2019-08-27 09:28] LABS: ALT (SGPT) 21 U/L (8-55); AST (SGOT) 17 U/L (5-34); Albumin 3.2 g/dL (3.4-4.8); Alkaline Phosphatase 94 U/L (40-110); Anion Gap 14 mmol/L (10-20); BUN (Urea Nitrogen) 18 mg/dL (8.4-25.7); Bilirubin, Total 0.3 mg/dL (0.2-1.2); CRP (Inflammatory) 3.55 mg/dL (= or < 0.5); Calc. Creatinine Clearance 56 mL/min (70-130); Calcium 9.3 mg/dL (7.8-10.44); Carbon Dioxide 27 mmol/L (23-31); Chloride 101 mmol/L (98-107); Estimated GFR-MDRD 54; Glucose 158 mg/dL (80-115); Potassium 3.7 mmol/L (3.5-5.1); Protein, Total 7.2 g/dL (5.8-8.1); Sodium 138 mmol/L (136-145)
[2019-08-27] MEDS: Acetaminophen/Codeine 30-300mg Tablet PO PRN ×2 (18:13→23:46)
[2019-08-27] MEDS: Atorvastatin Calcium 10 MG TAB PO SCH (20:52)
[2019-08-28] MEDS: Ampicillin 2 GM in Sodium Chloride 0.9% 100 ML IVPB SCH ×4 (05:32→23:46)
[2019-08-28] MEDS: Potassium Chloride 10 MEQ TAB PO SCH (09:27)
[2019-08-28] MEDS: Lisinopril 5 MG TAB PO SCH (09:27)
[2019-08-28] MEDS: Carvedilol 3.125 MG TAB PO SCH ×2 (09:28→17:45)
[2019-08-28] MEDS: Aspirin 81 mg Enteric Coated Tablet PO SCH (09:28)
[2019-08-28] MEDS: Folic Acid 1 MG TAB PO SCH (09:28)
[2019-08-28] MEDS: Magnesium Oxide 400 MG TAB PO SCH (09:28)
[2019-08-28] MEDS: Bumetanide 1 MG TAB PO SCH (09:28)
[2019-08-28] MEDS: Amlodipine 5 MG TAB PO SCH (09:28)
[2019-08-28] MEDS: Bupropion 150 MG XL TAB PO SCH (09:28)
[2019-08-28] MEDS: Ferrous Sulfate 325 MG TAB PO SCH ×2 (09:28→17:45)
[2019-08-28] MEDS: Niacin SR 500 MG CAP PO SCH (09:28)
[2019-08-28] MEDS: cefTRIAXone\\ROCEPHIN 2 GM in Sodium Chloride 0.9% 100 ML IVPB SCH ×2 (09:29→20:26)
[2019-08-28] MEDS: Arformoterol 15 MCG/2 ML NEB NEB SCH ×2 (09:29→20:25)
[2019-08-28] MEDS: Atorvastatin Calcium 10 MG TAB PO SCH (20:25)
[2019-08-28] MEDS: Acetaminophen/Codeine 30-300mg Tablet PO PRN (21:19)
[2019-08-29] MEDS: Ampicillin 2 GM in Sodium Chloride 0.9% 100 ML IVPB SCH ×4 (05:29→23:52)
[2019-08-29] MEDS: Bupropion 150 MG XL TAB PO SCH (08:35)
[2019-08-29] MEDS: Ferrous Sulfate 325 MG TAB PO SCH ×2 (08:35→17:51)
[2019-08-29] MEDS: Carvedilol 3.125 MG TAB PO SCH ×2 (08:35→17:51)
[2019-08-29] MEDS: Bumetanide 1 MG TAB PO SCH (08:35)
[2019-08-29] MEDS: Aspirin 81 mg Enteric Coated Tablet PO SCH (08:35)
[2019-08-29] MEDS: Magnesium Oxide 400 MG TAB PO SCH (08:35)
[2019-08-29] MEDS: Lisinopril 5 MG TAB PO SCH (08:36)
[2019-08-29] MEDS: Amlodipine 5 MG TAB PO SCH (08:36)
[2019-08-29] MEDS: Folic Acid 1 MG TAB PO SCH (08:36)
[2019-08-29] MEDS: Potassium Chloride 10 MEQ TAB PO SCH (08:36)
[2019-08-29] MEDS: Niacin SR 500 MG CAP PO SCH (08:36)
[2019-08-29] MEDS: Arformoterol 15 MCG/2 ML NEB NEB SCH ×2 (08:37→20:32)
[2019-08-29] MEDS: cefTRIAXone\\ROCEPHIN 2 GM in Sodium Chloride 0.9% 100 ML IVPB SCH ×2 (08:37→20:31)
[2019-08-29] MEDS: Acetaminophen/Codeine 30-300mg Tablet PO PRN (20:30)
[2019-08-29] MEDS: Atorvastatin Calcium 10 MG TAB PO SCH (20:33)
[2019-08-30] MEDS: Ampicillin 2 GM in Sodium Chloride 0.9% 100 ML IVPB SCH ×4 (05:21→23:36)
[2019-08-30] MEDS: Bupropion 150 MG XL TAB PO SCH (08:40)
[2019-08-30] MEDS: Aspirin 81 mg Enteric Coated Tablet PO SCH (08:40)
[2019-08-30] MEDS: Lisinopril 5 MG TAB PO SCH (08:40)
[2019-08-30] MEDS: Bumetanide 1 MG TAB PO SCH (08:40)
[2019-08-30] MEDS: cefTRIAXone\\ROCEPHIN 2 GM in Sodium Chloride 0.9% 100 ML IVPB SCH ×2 (08:42→20:32)
[2019-08-30] MEDS: Ferrous Sulfate 325 MG TAB PO SCH ×2 (08:42→17:22)
[2019-08-30] MEDS: Folic Acid 1 MG TAB PO SCH (08:42)
[2019-08-30] MEDS: Niacin SR 500 MG CAP PO SCH (08:42)
[2019-08-30] MEDS: Magnesium Oxide 400 MG TAB PO SCH (08:42)
[2019-08-30] MEDS: Carvedilol 3.125 MG TAB PO SCH ×2 (08:42→17:22)
[2019-08-30] MEDS: Arformoterol 15 MCG/2 ML NEB NEB SCH ×2 (08:42→20:31)
[2019-08-30] MEDS: Potassium Chloride 10 MEQ TAB PO SCH (08:42)
[2019-08-30] MEDS: Amlodipine 5 MG TAB PO SCH (08:42)
[2019-08-30] MEDS: Acetaminophen/Codeine 30-300mg Tablet PO PRN (20:30)
[2019-08-30] MEDS: Atorvastatin Calcium 10 MG TAB PO SCH (20:30)
[2019-08-31] MEDS: Ampicillin 2 GM in Sodium Chloride 0.9% 100 ML IVPB SCH ×4 (05:31→23:34)
[2019-08-31] MEDS: cefTRIAXone\\ROCEPHIN 2 GM in Sodium Chloride 0.9% 100 ML IVPB SCH ×2 (07:53→20:10)
[2019-08-31] MEDS: Amlodipine 5 MG TAB PO SCH (07:53)
[2019-08-31] MEDS: Arformoterol 15 MCG/2 ML NEB NEB SCH ×2 (07:53→20:13)
[2019-08-31] MEDS: Magnesium Oxide 400 MG TAB PO SCH (07:53)
[2019-08-31] MEDS: Ferrous Sulfate 325 MG TAB PO SCH ×2 (07:54→17:49)
[2019-08-31] MEDS: Niacin SR 500 MG CAP PO SCH (07:54)
[2019-08-31] MEDS: Bumetanide 1 MG TAB PO SCH (07:54)
[2019-08-31] MEDS: Carvedilol 3.125 MG TAB PO SCH ×2 (07:54→17:49)
[2019-08-31] MEDS: Folic Acid 1 MG TAB PO SCH (07:54)
[2019-08-31] MEDS: Aspirin 81 mg Enteric Coated Tablet PO SCH (07:54)
[2019-08-31] MEDS: Potassium Chloride 10 MEQ TAB PO SCH (07:54)
[2019-08-31] MEDS: Lisinopril 5 MG TAB PO SCH (07:55)
[2019-08-31] MEDS: Bupropion 150 MG XL TAB PO SCH (07:55)
[2019-08-31] MEDS: Acetaminophen/Codeine 30-300mg Tablet PO PRN (19:23)
[2019-08-31] MEDS: Atorvastatin Calcium 10 MG TAB PO SCH (20:08)
[2019-09-01] MEDS ORDERED: Ampicillin 2 GM VIAL ONE (05:19)
[2019-09-01] MEDS ORDERED: Sodium Chloride 0.9% 10 ML ONE (05:19)
[2019-09-01] MEDS: Ampicillin 2 GM in Sodium Chloride 0.9% 100 ML IVPB SCH ×4 (06:00→23:34)
[2019-09-01] MEDS: Potassium Chloride 10 MEQ TAB PO SCH (08:00)
[2019-09-01] MEDS: Folic Acid 1 MG TAB PO SCH (09:00)
[2019-09-01] MEDS: Niacin SR 500 MG CAP PO SCH (09:00)
[2019-09-01] MEDS: Bumetanide 1 MG TAB PO SCH (09:00)
[2019-09-01] MEDS: Carvedilol 3.125 MG TAB PO SCH ×2 (09:00→17:19)
[2019-09-01] MEDS: Arformoterol 15 MCG/2 ML NEB NEB SCH ×2 (09:00→19:59)
[2019-09-01] MEDS: Ferrous Sulfate 325 MG TAB PO SCH ×2 (09:00→17:19)
[2019-09-01] MEDS: Aspirin 81 mg Enteric Coated Tablet PO SCH (09:00)
[2019-09-01] MEDS: Bupropion 150 MG XL TAB PO SCH (09:00)
[2019-09-01] MEDS: cefTRIAXone\\ROCEPHIN 2 GM in Sodium Chloride 0.9% 100 ML IVPB SCH ×2 (09:00→20:04)
[2019-09-01] MEDS: Amlodipine 5 MG TAB PO SCH (09:00)
[2019-09-01] MEDS: Lisinopril 5 MG TAB PO SCH (09:00)
[2019-09-01] MEDS: Magnesium Oxide 400 MG TAB PO SCH (09:00)
[2019-09-01] MEDS: Atorvastatin Calcium 10 MG TAB PO SCH (20:01)
[2019-09-02] MEDS: Ampicillin 2 GM in Sodium Chloride 0.9% 100 ML IVPB SCH ×3 (06:02→17:53)
[2019-09-02] MEDS: Ferrous Sulfate 325 MG TAB PO SCH ×2 (09:14→16:49)
[2019-09-02] MEDS: Carvedilol 3.125 MG TAB PO SCH ×2 (09:14→16:49)
[2019-09-02] MEDS: Potassium Chloride 10 MEQ TAB PO SCH (09:14)
[2019-09-02] MEDS: Amlodipine 5 MG TAB PO SCH (09:15)
[2019-09-02] MEDS: Aspirin 81 mg Enteric Coated Tablet PO SCH (09:16)
[2019-09-02] MEDS: Bupropion 150 MG XL TAB PO SCH (09:16)
[2019-09-02] MEDS: Bumetanide 1 MG TAB PO SCH (09:16)
[2019-09-02] MEDS: Folic Acid 1 MG TAB PO SCH (09:17)
[2019-09-02] MEDS: Lisinopril 5 MG TAB PO SCH (09:17)
[2019-09-02] MEDS: Magnesium Oxide 400 MG TAB PO SCH (09:17)
[2019-09-02] MEDS: cefTRIAXone\\ROCEPHIN 2 GM in Sodium Chloride 0.9% 100 ML IVPB SCH ×2 (09:17→21:36)
[2019-09-02] MEDS: Niacin SR 500 MG CAP PO SCH (09:17)
[2019-09-02] MEDS: Arformoterol 15 MCG/2 ML NEB NEB SCH ×2 (09:18→21:35)
[2019-09-02] MEDS: Acetaminophen/Codeine 30-300mg Tablet PO PRN ×2 (16:54→21:43)
[2019-09-02] MEDS: Atorvastatin Calcium 10 MG TAB PO SCH (21:35)
[2019-09-03] MEDS: Ampicillin 2 GM in Sodium Chloride 0.9% 100 ML IVPB SCH ×4 (00:37→17:38)
[2019-09-03 06:02] LABS: #Basophils 0.1 thou/uL (0.0-0.2); #Eosinphils 0.4 thou/uL (0.0-0.7); #Lymphocytes 0.7 thou/uL (1.20-3.40); #Monocytes 0.8 thou/uL (0.11-0.59); %Basophils 0.8 % (0.0-1.0); %Eosinophils 6.3 % (0.0-10.0); %Lymphocytes 10.1 % (21.0-51.0); %Monocytes 11.9 % (0.0-10.0); %Neutrophils 70.9 % (42.0-75.0); Hemoglobin 8.6 g/dL (14.0-18.0); Mean Corpuscular HGB CONC 30.8 g/dL (32.0-36.0); Mean Corpuscular Hemoglobin 27.5 pg (27.0-31.0); Mean Corpuscular Volume 89.2 fL (78.0-98.0); Mean Platelet Volume 6.7 fL (7.4-10.4); Platelet Count 223 thou/uL (130-400); RBC Distribution Width 15.7 % (11.5-14.5); Red Blood Cell (RBC) Count 3.14 mill/uL (4.70-6.10); White Blood Cell (WBC) Count 7.1 thou/uL (4.8-10.8)
[2019-09-03 06:42] LABS: ALT (SGPT) 22 U/L (8-55); AST (SGOT) 17 U/L (5-34); Albumin 3.3 g/dL (3.4-4.8); Alkaline Phosphatase 101 U/L (40-110); Anion Gap 17 mmol/L (10-20); BUN (Urea Nitrogen) 24 mg/dL (8.4-25.7); Bilirubin, Total 0.3 mg/dL (0.2-1.2); CRP (Inflammatory) 4.02 mg/dL (= or < 0.5); Calc. Creatinine Clearance 51 mL/min (70-130); Calcium 9.2 mg/dL (7.8-10.44); Carbon Dioxide 24 mmol/L (23-31); Chloride 102 mmol/L (98-107); Estimated GFR-MDRD 49; Globulin 3.4 g/dL (2.4-3.5); Glucose 141 mg/dL (80-115); Potassium 4.1 mmol/L (3.5-5.1); Protein, Total 6.7 g/dL (5.8-8.1); Sodium 139 mmol/L (136-145)
[2019-09-03] MEDS: Arformoterol 15 MCG/2 ML NEB NEB SCH ×2 (07:57→20:50)
[2019-09-03] MEDS: Potassium Chloride 10 MEQ TAB PO SCH (08:00)
[2019-09-03] MEDS: Ferrous Sulfate 325 MG TAB PO SCH ×2 (08:01→17:38)
[2019-09-03] MEDS: Carvedilol 3.125 MG TAB PO SCH ×2 (08:01→17:38)
[2019-09-03] MEDS: Folic Acid 1 MG TAB PO SCH (08:03)
[2019-09-03] MEDS: Bumetanide 1 MG TAB PO SCH (08:03)
[2019-09-03] MEDS: Amlodipine 5 MG TAB PO SCH (08:03)
[2019-09-03] MEDS: Lisinopril 5 MG TAB PO SCH (08:03)
[2019-09-03] MEDS: Aspirin 81 mg Enteric Coated Tablet PO SCH (08:03)
[2019-09-03] MEDS: Niacin SR 500 MG CAP PO SCH (08:04)
[2019-09-03] MEDS: Bupropion 150 MG XL TAB PO SCH (08:04)
[2019-09-03] MEDS: cefTRIAXone\\ROCEPHIN 2 GM in Sodium Chloride 0.9% 100 ML IVPB SCH ×2 (08:04→20:51)
[2019-09-03] MEDS: Magnesium Oxide 400 MG TAB PO SCH (08:04)
[2019-09-03] MEDS: Acetaminophen/Codeine 30-300mg Tablet PO PRN ×2 (15:06→20:58)
[2019-09-03] MEDS: Atorvastatin Calcium 10 MG TAB PO SCH (20:51)
[2019-09-04] MEDS: Ampicillin 2 GM in Sodium Chloride 0.9% 100 ML IVPB SCH ×4 (00:36→17:56)
[2019-09-04] MEDS: Bupropion 150 MG XL TAB PO SCH (08:31)
[2019-09-04] MEDS: Amlodipine 5 MG TAB PO SCH (08:31)
[2019-09-04] MEDS: Lisinopril 5 MG TAB PO SCH (08:31)
[2019-09-04] MEDS: Niacin SR 500 MG CAP PO SCH (08:31)
[2019-09-04] MEDS: Bumetanide 1 MG TAB PO SCH (08:31)
[2019-09-04] MEDS: Aspirin 81 mg Enteric Coated Tablet PO SCH (08:32)
[2019-09-04] MEDS: Ferrous Sulfate 325 MG TAB PO SCH ×2 (08:32→16:27)
[2019-09-04] MEDS: Potassium Chloride 10 MEQ TAB PO SCH (08:32)
[2019-09-04] MEDS: Folic Acid 1 MG TAB PO SCH (08:32)
[2019-09-04] MEDS: Carvedilol 3.125 MG TAB PO SCH ×2 (08:32→16:27)
[2019-09-04] MEDS: Magnesium Oxide 400 MG TAB PO SCH (08:32)
[2019-09-04] MEDS: cefTRIAXone\\ROCEPHIN 2 GM in Sodium Chloride 0.9% 100 ML IVPB SCH ×2 (09:13→21:22)
[2019-09-04] MEDS: Arformoterol 15 MCG/2 ML NEB NEB SCH ×2 (09:26→21:23)
[2019-09-04] MEDS: Acetaminophen/Codeine 30-300mg Tablet PO PRN ×2 (16:27→21:24)
[2019-09-04] MEDS: Atorvastatin Calcium 10 MG TAB PO SCH (21:24)
[2019-09-05] MEDS: Ampicillin 2 GM in Sodium Chloride 0.9% 100 ML IVPB SCH ×4 (00:27→17:05)
[2019-09-05] MEDS: cefTRIAXone\\ROCEPHIN 2 GM in Sodium Chloride 0.9% 100 ML IVPB SCH ×2 (08:29→21:11)
[2019-09-05] MEDS: Lisinopril 5 MG TAB PO SCH (08:30)
[2019-09-05] MEDS: Potassium Chloride 10 MEQ TAB PO SCH (08:30)
[2019-09-05] MEDS: Bumetanide 1 MG TAB PO SCH (08:30)
[2019-09-05] MEDS: Bupropion 150 MG XL TAB PO SCH (08:31)
[2019-09-05] MEDS: Arformoterol 15 MCG/2 ML NEB NEB SCH ×2 (08:31→21:14)
[2019-09-05] MEDS: Niacin SR 500 MG CAP PO SCH (08:31)
[2019-09-05] MEDS: Aspirin 81 mg Enteric Coated Tablet PO SCH (08:31)
[2019-09-05] MEDS: Amlodipine 5 MG TAB PO SCH (08:31)
[2019-09-05] MEDS: Carvedilol 3.125 MG TAB PO SCH ×2 (08:31→17:05)
[2019-09-05] MEDS: Magnesium Oxide 400 MG TAB PO SCH (08:31)
[2019-09-05] MEDS: Ferrous Sulfate 325 MG TAB PO SCH ×2 (08:31→17:05)
[2019-09-05] MEDS: Folic Acid 1 MG TAB PO SCH (08:31)
[2019-09-05] MEDS: Atorvastatin Calcium 10 MG TAB PO SCH (21:12)
[2019-09-06] MEDS: Acetaminophen/Codeine 30-300mg Tablet PO PRN
[2019-09-06] MEDS: Ampicillin 2 GM in Sodium Chloride 0.9% 100 ML IVPB SCH ×4 (00:01→17:05)
[2019-09-06] MEDS: Arformoterol 15 MCG/2 ML NEB NEB SCH ×2 (08:57→21:30)
[2019-09-06] MEDS: Ferrous Sulfate 325 MG TAB PO SCH ×2 (08:58→17:04)
[2019-09-06] MEDS: Bumetanide 1 MG TAB PO SCH (08:58)
[2019-09-06] MEDS: Carvedilol 3.125 MG TAB PO SCH ×2 (08:58→17:04)
[2019-09-06] MEDS: Aspirin 81 mg Enteric Coated Tablet PO SCH (08:58)
[2019-09-06] MEDS: Bupropion 150 MG XL TAB PO SCH (08:58)
[2019-09-06] MEDS: Potassium Chloride 10 MEQ TAB PO SCH (08:58)
[2019-09-06] MEDS: Lisinopril 5 MG TAB PO SCH (08:58)
[2019-09-06] MEDS: Niacin SR 500 MG CAP PO SCH (08:58)
[2019-09-06] MEDS: Folic Acid 1 MG TAB PO SCH (08:59)
[2019-09-06] MEDS: cefTRIAXone\\ROCEPHIN 2 GM in Sodium Chloride 0.9% 100 ML IVPB SCH ×2 (08:59→21:29)
[2019-09-06] MEDS: Amlodipine 5 MG TAB PO SCH (08:59)
[2019-09-06] MEDS: Magnesium Oxide 400 MG TAB PO SCH (08:59)
[2019-09-06] MEDS: Atorvastatin Calcium 10 MG TAB PO SCH (21:31)
[2019-09-07] MEDS: Ampicillin 2 GM in Sodium Chloride 0.9% 100 ML IVPB SCH ×4 (00:06→18:58)
[2019-09-07] MEDS: Ferrous Sulfate 325 MG TAB PO SCH ×2 (07:53→16:33)
[2019-09-07] MEDS: Carvedilol 3.125 MG TAB PO SCH ×2 (07:54→16:33)
[2019-09-07] MEDS: Potassium Chloride 10 MEQ TAB PO SCH (07:54)
[2019-09-07] MEDS: Arformoterol 15 MCG/2 ML NEB NEB SCH ×2 (08:15→21:28)
[2019-09-07] MEDS: Amlodipine 5 MG TAB PO SCH (08:15)
[2019-09-07] MEDS: Bumetanide 1 MG TAB PO SCH (08:16)
[2019-09-07] MEDS: Folic Acid 1 MG TAB PO SCH (08:16)
[2019-09-07] MEDS: Niacin SR 500 MG CAP PO SCH (08:16)
[2019-09-07] MEDS: Aspirin 81 mg Enteric Coated Tablet PO SCH (08:16)
[2019-09-07] MEDS: Bupropion 150 MG XL TAB PO SCH (08:16)
[2019-09-07] MEDS: cefTRIAXone\\ROCEPHIN 2 GM in Sodium Chloride 0.9% 100 ML IVPB SCH ×2 (08:17→21:32)
[2019-09-07] MEDS: Magnesium Oxide 400 MG TAB PO SCH (08:17)
[2019-09-07] MEDS: Lisinopril 5 MG TAB PO SCH (08:17)
[2019-09-07] MEDS: Acetaminophen/Codeine 30-300mg Tablet PO PRN (21:25)
[2019-09-07] MEDS: Atorvastatin Calcium 10 MG TAB PO SCH (21:27)
[2019-09-08] MEDS: Ampicillin 2 GM in Sodium Chloride 0.9% 100 ML IVPB SCH ×4 (00:30→17:08)
[2019-09-08] MEDS: cefTRIAXone\\ROCEPHIN 2 GM in Sodium Chloride 0.9% 100 ML IVPB SCH ×2 (08:16→20:19)
[2019-09-08] MEDS: Amlodipine 5 MG TAB PO SCH (08:17)
[2019-09-08] MEDS: Potassium Chloride 10 MEQ TAB PO SCH (08:17)
[2019-09-08] MEDS: Magnesium Oxide 400 MG TAB PO SCH (08:17)
[2019-09-08] MEDS: Niacin SR 500 MG CAP PO SCH (08:17)
[2019-09-08] MEDS: Bupropion 150 MG XL TAB PO SCH (08:17)
[2019-09-08] MEDS: Aspirin 81 mg Enteric Coated Tablet PO SCH (08:17)
[2019-09-08] MEDS: Arformoterol 15 MCG/2 ML NEB NEB SCH ×2 (08:17→20:17)
[2019-09-08] MEDS: Bumetanide 1 MG TAB PO SCH (08:17)
[2019-09-08] MEDS: Folic Acid 1 MG TAB PO SCH (08:17)
[2019-09-08] MEDS: Carvedilol 3.125 MG TAB PO SCH ×2 (08:18→17:09)
[2019-09-08] MEDS: Ferrous Sulfate 325 MG TAB PO SCH ×2 (08:18→17:09)
[2019-09-08] MEDS: Lisinopril 5 MG TAB PO SCH (08:18)
[2019-09-08] MEDS: Atorvastatin Calcium 10 MG TAB PO SCH (20:18)
[2019-09-09] MEDS: Ampicillin 2 GM in Sodium Chloride 0.9% 100 ML IVPB SCH ×5 (00:02→23:23)
[2019-09-09] MEDS: Potassium Chloride 10 MEQ TAB PO SCH (08:29)
[2019-09-09] MEDS: cefTRIAXone\\ROCEPHIN 2 GM in Sodium Chloride 0.9% 100 ML IVPB SCH ×2 (08:29→20:20)
[2019-09-09] MEDS: Arformoterol 15 MCG/2 ML NEB NEB SCH ×2 (08:29→20:21)
[2019-09-09] MEDS: Amlodipine 5 MG TAB PO SCH (08:30)
[2019-09-09] MEDS: Niacin SR 500 MG CAP PO SCH (08:30)
[2019-09-09] MEDS: Bupropion 150 MG XL TAB PO SCH (08:30)
[2019-09-09] MEDS: Aspirin 81 mg Enteric Coated Tablet PO SCH (08:31)
[2019-09-09] MEDS: Magnesium Oxide 400 MG TAB PO SCH (08:31)
[2019-09-09] MEDS: Lisinopril 5 MG TAB PO SCH (08:31)
[2019-09-09] MEDS: Folic Acid 1 MG TAB PO SCH (08:31)
[2019-09-09] MEDS: Carvedilol 3.125 MG TAB PO SCH ×2 (08:31→17:20)
[2019-09-09] MEDS: Ferrous Sulfate 325 MG TAB PO SCH ×2 (08:31→17:20)
[2019-09-09] MEDS: Bumetanide 1 MG TAB PO SCH (08:32)
[2019-09-09 10:08] VITALS: BMI 23.6
[2019-09-09] MEDS: Acetaminophen/Codeine 30-300mg Tablet PO PRN (19:08)
[2019-09-09] MEDS: Atorvastatin Calcium 10 MG TAB PO SCH (20:19)
[2019-09-10] MEDS: Ampicillin 2 GM in Sodium Chloride 0.9% 100 ML IVPB SCH ×4 (05:28→23:44)
[2019-09-10 06:08] LABS: Band 2 % (5-11); Eosinophils 3 % (0-10); Hemoglobin 9.1 g/dL (14.0-18.0); Hypochromia SLIGHT = 6-15 cells (100X) (0-5/hpf); Lymphocytes 13 % (21-51); MDiff Complete? YES; Mean Corpuscular HGB CONC 30.5 g/dL (32.0-36.0); Microcytosis SLIGHT = 6-15 cells (100X) (0-5/hpf); Monocytes 16 % (0-10); Neutrophil 66 % (42-75); Platelet Count 226 thou/uL (130-400); Platelet Morphology Comment Appears Adequate; RBC Distribution Width 15.3 % (11.5-14.5); Red Blood Cell (RBC) Count 3.23 mill/uL (4.70-6.10); Stomatocytes SLIGHT = 2-5 cells (100X) (0-1/hpf); White Blood Cell (WBC) Count 4.8 thou/uL (4.8-10.8)
[2019-09-10 06:16] LABS: ALT (SGPT) 16 U/L (8-55); AST (SGOT) 14 U/L (5-34); Albumin 3.4 g/dL (3.4-4.8); Alkaline Phosphatase 97 U/L (40-110); Anion Gap 15 mmol/L (10-20); BUN (Urea Nitrogen) 20 mg/dL (8.4-25.7); Bilirubin, Total 0.3 mg/dL (0.2-1.2); CRP (Inflammatory) 3.32 mg/dL (= or < 0.5); Calc. Creatinine Clearance 58 mL/min (70-130); Calcium 9.4 mg/dL (7.8-10.44); Carbon Dioxide 25 mmol/L (23-31); Chloride 103 mmol/L (98-107); Estimated GFR-MDRD 57; Globulin 3.8 g/dL (2.4-3.5); Glucose 118 mg/dL (80-115); Potassium 4.2 mmol/L (3.5-5.1); Protein, Total 7.2 g/dL (5.8-8.1); Sodium 139 mmol/L (136-145)
[2019-09-10] MEDS: cefTRIAXone\\ROCEPHIN 2 GM in Sodium Chloride 0.9% 100 ML IVPB SCH ×2 (08:44→20:16)
[2019-09-10] MEDS: Arformoterol 15 MCG/2 ML NEB NEB SCH ×2 (08:49→20:20)
[2019-09-10] MEDS: Folic Acid 1 MG TAB PO SCH (08:51)
[2019-09-10] MEDS: Amlodipine 5 MG TAB PO SCH (08:51)
[2019-09-10] MEDS: Aspirin 81 mg Enteric Coated Tablet PO SCH (08:51)
[2019-09-10] MEDS: Bumetanide 1 MG TAB PO SCH (08:51)
[2019-09-10] MEDS: Carvedilol 3.125 MG TAB PO SCH ×2 (08:51→17:47)
[2019-09-10] MEDS: Ferrous Sulfate 325 MG TAB PO SCH ×2 (08:51→17:47)
[2019-09-10] MEDS: Potassium Chloride 10 MEQ TAB PO SCH (08:51)
[2019-09-10] MEDS: Niacin SR 500 MG CAP PO SCH (08:52)
[2019-09-10] MEDS: Lisinopril 5 MG TAB PO SCH (08:52)
[2019-09-10] MEDS: Magnesium Oxide 400 MG TAB PO SCH (08:52)
[2019-09-10] MEDS: Bupropion 150 MG XL TAB PO SCH (08:52)
[2019-09-10] MEDS: Atorvastatin Calcium 10 MG TAB PO SCH (20:18)
[2019-09-11] MEDS: Ampicillin 2 GM in Sodium Chloride 0.9% 100 ML IVPB SCH ×4 (05:21→23:31)
[2019-09-11] MEDS: Arformoterol 15 MCG/2 ML NEB NEB SCH ×2 (08:43→20:42)
[2019-09-11] MEDS: cefTRIAXone\\ROCEPHIN 2 GM in Sodium Chloride 0.9% 100 ML IVPB SCH ×2 (08:44→20:41)
[2019-09-11] MEDS: Aspirin 81 mg Enteric Coated Tablet PO SCH (08:46)
[2019-09-11] MEDS: Niacin SR 500 MG CAP PO SCH (08:46)
[2019-09-11] MEDS: Potassium Chloride 10 MEQ TAB PO SCH (08:46)
[2019-09-11] MEDS: Bumetanide 1 MG TAB PO SCH (08:46)
[2019-09-11] MEDS: Bupropion 150 MG XL TAB PO SCH (08:46)
[2019-09-11] MEDS: Carvedilol 3.125 MG TAB PO SCH ×2 (08:46→17:10)
[2019-09-11] MEDS: Ferrous Sulfate 325 MG TAB PO SCH ×2 (08:46→17:11)
[2019-09-11] MEDS: Lisinopril 5 MG TAB PO SCH (08:47)
[2019-09-11] MEDS: Folic Acid 1 MG TAB PO SCH (08:47)
[2019-09-11] MEDS: Magnesium Oxide 400 MG TAB PO SCH (08:47)
[2019-09-11] MEDS: Amlodipine 5 MG TAB PO SCH (08:47)
[2019-09-11] MEDS: Atorvastatin Calcium 10 MG TAB PO SCH (20:43)
[2019-09-12] MEDS: Ampicillin 2 GM in Sodium Chloride 0.9% 100 ML IVPB SCH ×4 (05:01→23:11)
[2019-09-12] MEDS: Arformoterol 15 MCG/2 ML NEB NEB SCH ×2 (08:35→20:34)
[2019-09-12] MEDS: Potassium Chloride 10 MEQ TAB PO SCH (08:37)
[2019-09-12] MEDS: Niacin SR 500 MG CAP PO SCH (08:37)
[2019-09-12] MEDS: Bumetanide 1 MG TAB PO SCH (08:37)
[2019-09-12] MEDS: Carvedilol 3.125 MG TAB PO SCH ×2 (08:38→17:25)
[2019-09-12] MEDS: Folic Acid 1 MG TAB PO SCH (08:38)
[2019-09-12] MEDS: Bupropion 150 MG XL TAB PO SCH (08:38)
[2019-09-12] MEDS: Ferrous Sulfate 325 MG TAB PO SCH ×2 (08:38→17:25)
[2019-09-12] MEDS: Amlodipine 5 MG TAB PO SCH (08:38)
[2019-09-12] MEDS: Magnesium Oxide 400 MG TAB PO SCH (08:38)
[2019-09-12] MEDS: Lisinopril 5 MG TAB PO SCH (08:38)
[2019-09-12] MEDS: Aspirin 81 mg Enteric Coated Tablet PO SCH (08:38)
[2019-09-12] MEDS: cefTRIAXone\\ROCEPHIN 2 GM in Sodium Chloride 0.9% 100 ML IVPB SCH ×2 (08:41→20:33)
[2019-09-12] MEDS: Atorvastatin Calcium 10 MG TAB PO SCH (20:34)
[2019-09-13] MEDS: Ampicillin 2 GM in Sodium Chloride 0.9% 100 ML IVPB SCH ×4 (04:59→23:53)
[2019-09-13] MEDS: Potassium Chloride 10 MEQ TAB PO SCH (08:33)
[2019-09-13] MEDS: Arformoterol 15 MCG/2 ML NEB NEB SCH ×2 (08:34→21:15)
[2019-09-13] MEDS: cefTRIAXone\\ROCEPHIN 2 GM in Sodium Chloride 0.9% 100 ML IVPB SCH ×2 (08:34→21:14)
[2019-09-13] MEDS: Lisinopril 5 MG TAB PO SCH (08:37)
[2019-09-13] MEDS: Aspirin 81 mg Enteric Coated Tablet PO SCH (08:37)
[2019-09-13] MEDS: Bumetanide 1 MG TAB PO SCH (08:37)
[2019-09-13] MEDS: Folic Acid 1 MG TAB PO SCH (08:37)
[2019-09-13] MEDS: Bupropion 150 MG XL TAB PO SCH (08:37)
[2019-09-13] MEDS: Niacin SR 500 MG CAP PO SCH (08:37)
[2019-09-13] MEDS: Ferrous Sulfate 325 MG TAB PO SCH ×2 (08:37→17:47)
[2019-09-13] MEDS: Magnesium Oxide 400 MG TAB PO SCH (08:38)
[2019-09-13] MEDS: Amlodipine 5 MG TAB PO SCH (08:38)
[2019-09-13] MEDS: Carvedilol 3.125 MG TAB PO SCH ×2 (08:38→17:48)
[2019-09-13] MEDS: Atorvastatin Calcium 10 MG TAB PO SCH (21:15)
[2019-09-14] MEDS: Ampicillin 2 GM in Sodium Chloride 0.9% 100 ML IVPB SCH ×4 (05:27→23:43)
[2019-09-14] MEDS: Arformoterol 15 MCG/2 ML NEB NEB SCH ×2 (08:30→20:34)
[2019-09-14] MEDS: Potassium Chloride 10 MEQ TAB PO SCH (08:32)
[2019-09-14] MEDS: Magnesium Oxide 400 MG TAB PO SCH (08:33)
[2019-09-14] MEDS: Bupropion 150 MG XL TAB PO SCH (08:33)
[2019-09-14] MEDS: Bumetanide 1 MG TAB PO SCH (08:33)
[2019-09-14] MEDS: Ferrous Sulfate 325 MG TAB PO SCH ×2 (08:33→17:13)
[2019-09-14] MEDS: Folic Acid 1 MG TAB PO SCH (08:33)
[2019-09-14] MEDS: Amlodipine 5 MG TAB PO SCH (08:33)
[2019-09-14] MEDS: Aspirin 81 mg Enteric Coated Tablet PO SCH (08:33)
[2019-09-14] MEDS: Carvedilol 3.125 MG TAB PO SCH ×2 (08:33→17:13)
[2019-09-14] MEDS: Lisinopril 5 MG TAB PO SCH (08:34)
[2019-09-14] MEDS: Niacin SR 500 MG CAP PO SCH (08:34)
[2019-09-14] MEDS: cefTRIAXone\\ROCEPHIN 2 GM in Sodium Chloride 0.9% 100 ML IVPB SCH ×2 (08:35→20:33)
[2019-09-14] MEDS: Atorvastatin Calcium 10 MG TAB PO SCH (20:34)
[2019-09-15] MEDS: Ampicillin 2 GM in Sodium Chloride 0.9% 100 ML IVPB SCH ×4 (05:03→23:35)
[2019-09-15] MEDS: Arformoterol 15 MCG/2 ML NEB NEB SCH ×2 (08:33→20:16)
[2019-09-15] MEDS: cefTRIAXone\\ROCEPHIN 2 GM in Sodium Chloride 0.9% 100 ML IVPB SCH ×2 (08:33→20:15)
[2019-09-15] MEDS: Potassium Chloride 10 MEQ TAB PO SCH (08:35)
[2019-09-15] MEDS: Aspirin 81 mg Enteric Coated Tablet PO SCH (08:35)
[2019-09-15] MEDS: Lisinopril 5 MG TAB PO SCH (08:35)
[2019-09-15] MEDS: Bumetanide 1 MG TAB PO SCH (08:36)
[2019-09-15] MEDS: Folic Acid 1 MG TAB PO SCH (08:36)
[2019-09-15] MEDS: Magnesium Oxide 400 MG TAB PO SCH (08:36)
[2019-09-15] MEDS: Amlodipine 5 MG TAB PO SCH (08:36)
[2019-09-15] MEDS: Ferrous Sulfate 325 MG TAB PO SCH ×2 (08:36→17:11)
[2019-09-15] MEDS: Niacin SR 500 MG CAP PO SCH (08:36)
[2019-09-15] MEDS: Bupropion 150 MG XL TAB PO SCH (08:36)
[2019-09-15] MEDS: Carvedilol 3.125 MG TAB PO SCH ×2 (08:36→17:11)
[2019-09-15] MEDS: Vancomycin HCl 25 MG/ML Oral PO SCH (20:15)
[2019-09-15] MEDS: Atorvastatin Calcium 10 MG TAB PO SCH (20:16)
[2019-09-16] MEDS: Ampicillin 2 GM in Sodium Chloride 0.9% 100 ML IVPB SCH ×3 (04:59→17:32)
[2019-09-16] MEDS: Vancomycin HCl 25 MG/ML Oral PO SCH ×3 (08:33→21:39)
[2019-09-16] MEDS: cefTRIAXone\\ROCEPHIN 2 GM in Sodium Chloride 0.9% 100 ML IVPB SCH ×2 (08:35→21:36)
[2019-09-16] MEDS: Arformoterol 15 MCG/2 ML NEB NEB SCH ×2 (08:39→21:35)
[2019-09-16] MEDS: Bumetanide 1 MG TAB PO SCH (08:39)
[2019-09-16] MEDS: Potassium Chloride 10 MEQ TAB PO SCH (08:39)
[2019-09-16] MEDS: Niacin SR 500 MG CAP PO SCH (08:40)
[2019-09-16] MEDS: Bupropion 150 MG XL TAB PO SCH (08:40)
[2019-09-16] MEDS: Aspirin 81 mg Enteric Coated Tablet PO SCH (08:40)
[2019-09-16] MEDS: Amlodipine 5 MG TAB PO SCH (08:40)
[2019-09-16] MEDS: Magnesium Oxide 400 MG TAB PO SCH (08:40)
[2019-09-16] MEDS: Carvedilol 3.125 MG TAB PO SCH ×2 (08:41→17:32)
[2019-09-16] MEDS: Lisinopril 5 MG TAB PO SCH (08:41)
[2019-09-16] MEDS: Folic Acid 1 MG TAB PO SCH (08:42)
[2019-09-16] MEDS: Ferrous Sulfate 325 MG TAB PO SCH ×2 (08:42→17:32)
[2019-09-16] MEDS: Atorvastatin Calcium 10 MG TAB PO SCH (21:36)
[2019-09-17] MEDS: Ampicillin 2 GM in Sodium Chloride 0.9% 100 ML IVPB SCH ×4 (00:14→18:09)
[2019-09-17] MEDS: Vancomycin HCl 25 MG/ML Oral PO SCH ×3 (09:03→21:28)
[2019-09-17] MEDS: cefTRIAXone\\ROCEPHIN 2 GM in Sodium Chloride 0.9% 100 ML IVPB SCH ×2 (09:04→21:27)
[2019-09-17] MEDS: Bumetanide 1 MG TAB PO SCH (09:05)
[2019-09-17] MEDS: Carvedilol 3.125 MG TAB PO SCH ×2 (09:05→16:59)
[2019-09-17] MEDS: Aspirin 81 mg Enteric Coated Tablet PO SCH (09:05)
[2019-09-17] MEDS: Arformoterol 15 MCG/2 ML NEB NEB SCH ×2 (09:05→21:26)
[2019-09-17] MEDS: Folic Acid 1 MG TAB PO SCH (09:06)
[2019-09-17] MEDS: Lisinopril 5 MG TAB PO SCH (09:06)
[2019-09-17] MEDS: Magnesium Oxide 400 MG TAB PO SCH (09:06)
[2019-09-17] MEDS: Potassium Chloride 10 MEQ TAB PO SCH (09:06)
[2019-09-17] MEDS: Bupropion 150 MG XL TAB PO SCH (09:06)
[2019-09-17] MEDS: Amlodipine 5 MG TAB PO SCH (09:06)
[2019-09-17] MEDS: Niacin SR 500 MG CAP PO SCH (09:06)
[2019-09-17] MEDS: Ferrous Sulfate 325 MG TAB PO SCH ×2 (09:07→16:59)
[2019-09-17 09:26] LABS: Anisocytosis SLIGHT = 6-15 cells (100X) (0-5/hpf); Band 1 % (5-11); Elliptocytes SLIGHT = 2-5 cells (100X) (0-1/hpf); Eosinophils 9 % (0-10); Hemoglobin 9.5 g/dL (14.0-18.0); Lymphocytes 26 % (21-51); MDiff Complete? YES; Mean Corpuscular HGB CONC 30.3 g/dL (32.0-36.0); Mean Corpuscular Hemoglobin 27.9 pg (27.0-31.0); Mean Platelet Volume 6.2 fL (7.4-10.4); Monocytes 17 % (0-10); Neutrophil 47 % (42-75); Platelet Count 210 thou/uL (130-400); Poikilocytosis SLIGHT = 6-15 cells (100X) (0-5/hpf); RBC Distribution Width 15.2 % (11.5-14.5); White Blood Cell (WBC) Count 5.3 thou/uL (4.8-10.8)
[2019-09-17 09:39] LABS: ALT (SGPT) 15 U/L (8-55); AST (SGOT) 13 U/L (5-34); Albumin 3.5 g/dL (3.4-4.8); Alkaline Phosphatase 90 U/L (40-110); Anion Gap 14 mmol/L (10-20); BUN (Urea Nitrogen) 20 mg/dL (8.4-25.7); Bilirubin, Total 0.3 mg/dL (0.2-1.2); CRP (Inflammatory) 3.18 mg/dL (= or < 0.5); Calc. Creatinine Clearance 58 mL/min (70-130); Calcium 9.2 mg/dL (7.8-10.44); Carbon Dioxide 24 mmol/L (23-31); Chloride 103 mmol/L (98-107); Estimated GFR-MDRD 57; Globulin 3.4 g/dL (2.4-3.5); Glucose 135 mg/dL (80-115); Potassium 4.2 mmol/L (3.5-5.1); Protein, Total 6.9 g/dL (5.8-8.1); Sodium 137 mmol/L (136-145)
[2019-09-17] MEDS: Atorvastatin Calcium 10 MG TAB PO SCH (21:26)
[2019-09-18] MEDS: Ampicillin 2 GM in Sodium Chloride 0.9% 100 ML IVPB SCH ×5 (00:26→23:54)
[2019-09-18] MEDS: Bupropion 150 MG XL TAB PO SCH (08:11)
[2019-09-18] MEDS: Arformoterol 15 MCG/2 ML NEB NEB SCH ×2 (08:11→21:07)
[2019-09-18] MEDS: cefTRIAXone\\ROCEPHIN 2 GM in Sodium Chloride 0.9% 100 ML IVPB SCH ×2 (08:11→21:06)
[2019-09-18] MEDS: Magnesium Oxide 400 MG TAB PO SCH (08:12)
[2019-09-18] MEDS: Lisinopril 5 MG TAB PO SCH (08:13)
[2019-09-18] MEDS: Amlodipine 5 MG TAB PO SCH (08:13)
[2019-09-18] MEDS: Ferrous Sulfate 325 MG TAB PO SCH ×2 (08:13→17:05)
[2019-09-18] MEDS: Niacin SR 500 MG CAP PO SCH (08:13)
[2019-09-18] MEDS: Carvedilol 3.125 MG TAB PO SCH ×2 (08:13→17:05)
[2019-09-18] MEDS: Aspirin 81 mg Enteric Coated Tablet PO SCH (08:13)
[2019-09-18] MEDS: Bumetanide 1 MG TAB PO SCH (08:13)
[2019-09-18] MEDS: Folic Acid 1 MG TAB PO SCH (08:13)
[2019-09-18] MEDS: Potassium Chloride 10 MEQ TAB PO SCH (08:13)
[2019-09-18] MEDS: Vancomycin HCl 25 MG/ML Oral PO SCH ×3 (08:15→21:09)
[2019-09-18] MEDS: Atorvastatin Calcium 10 MG TAB PO SCH (21:07)
[2019-09-19] MEDS: Ampicillin 2 GM in Sodium Chloride 0.9% 100 ML IVPB SCH ×3 (05:27→17:11)
[2019-09-19] MEDS: cefTRIAXone\\ROCEPHIN 2 GM in Sodium Chloride 0.9% 100 ML IVPB SCH ×2 (08:06→21:10)
[2019-09-19] MEDS: Potassium Chloride 10 MEQ TAB PO SCH (08:07)
[2019-09-19] MEDS: Magnesium Oxide 400 MG TAB PO SCH (08:07)
[2019-09-19] MEDS: Aspirin 81 mg Enteric Coated Tablet PO SCH (08:07)
[2019-09-19] MEDS: Bumetanide 1 MG TAB PO SCH (08:07)
[2019-09-19] MEDS: Niacin SR 500 MG CAP PO SCH (08:07)
[2019-09-19] MEDS: Amlodipine 5 MG TAB PO SCH (08:07)
[2019-09-19] MEDS: Lisinopril 5 MG TAB PO SCH (08:07)
[2019-09-19] MEDS: Folic Acid 1 MG TAB PO SCH (08:07)
[2019-09-19] MEDS: Bupropion 150 MG XL TAB PO SCH (08:07)
[2019-09-19] MEDS: Ferrous Sulfate 325 MG TAB PO SCH ×2 (08:07→17:11)
[2019-09-19] MEDS: Carvedilol 3.125 MG TAB PO SCH ×2 (08:08→17:11)
[2019-09-19] MEDS: Arformoterol 15 MCG/2 ML NEB NEB SCH ×2 (08:08→21:07)
[2019-09-19] MEDS: Vancomycin HCl 25 MG/ML Oral PO SCH ×3 (08:08→21:11)
[2019-09-19] MEDS: Atorvastatin Calcium 10 MG TAB PO SCH (21:07)
[2019-09-20] MEDS: Ampicillin 2 GM in Sodium Chloride 0.9% 100 ML IVPB SCH ×4 (00:31→17:06)
[2019-09-20] MEDS: Vancomycin HCl 25 MG/ML Oral PO SCH ×3 (08:33→20:59)
[2019-09-20] MEDS: cefTRIAXone\\ROCEPHIN 2 GM in Sodium Chloride 0.9% 100 ML IVPB SCH ×2 (08:34→20:57)
[2019-09-20] MEDS: Arformoterol 15 MCG/2 ML NEB NEB SCH ×2 (08:34→21:16)
[2019-09-20] MEDS: Bumetanide 1 MG TAB PO SCH (08:39)
[2019-09-20] MEDS: Ferrous Sulfate 325 MG TAB PO SCH ×2 (08:39→17:06)
[2019-09-20] MEDS: Aspirin 81 mg Enteric Coated Tablet PO SCH (08:39)
[2019-09-20] MEDS: Magnesium Oxide 400 MG TAB PO SCH (08:39)
[2019-09-20] MEDS: Potassium Chloride 10 MEQ TAB PO SCH (08:39)
[2019-09-20] MEDS: Amlodipine 5 MG TAB PO SCH (08:39)
[2019-09-20] MEDS: Carvedilol 3.125 MG TAB PO SCH ×2 (08:39→17:06)
[2019-09-20] MEDS: Folic Acid 1 MG TAB PO SCH (08:39)
[2019-09-20] MEDS: Lisinopril 5 MG TAB PO SCH (08:40)
[2019-09-20] MEDS: Niacin SR 500 MG CAP PO SCH (08:40)
[2019-09-20] MEDS: Bupropion 150 MG XL TAB PO SCH (08:40)
[2019-09-20] MEDS: Atorvastatin Calcium 10 MG TAB PO SCH (20:59)
[2019-09-21] MEDS: Ampicillin 2 GM in Sodium Chloride 0.9% 100 ML IVPB SCH ×5 (00:09→23:13)
[2019-09-21] MEDS: Vancomycin HCl 25 MG/ML Oral PO SCH ×3 (08:23→20:11)
[2019-09-21] MEDS: Arformoterol 15 MCG/2 ML NEB NEB SCH ×2 (08:24→20:13)
[2019-09-21] MEDS: Carvedilol 3.125 MG TAB PO SCH ×2 (08:25→16:58)
[2019-09-21] MEDS: Ferrous Sulfate 325 MG TAB PO SCH ×2 (08:25→16:58)
[2019-09-21] MEDS: Niacin SR 500 MG CAP PO SCH (08:25)
[2019-09-21] MEDS: Bumetanide 1 MG TAB PO SCH (08:25)
[2019-09-21] MEDS: Amlodipine 5 MG TAB PO SCH (08:25)
[2019-09-21] MEDS: Folic Acid 1 MG TAB PO SCH (08:25)
[2019-09-21] MEDS: Potassium Chloride 10 MEQ TAB PO SCH (08:25)
[2019-09-21] MEDS: Lisinopril 5 MG TAB PO SCH (08:25)
[2019-09-21] MEDS: Bupropion 150 MG XL TAB PO SCH (08:25)
[2019-09-21] MEDS: Magnesium Oxide 400 MG TAB PO SCH (08:25)
[2019-09-21] MEDS: Aspirin 81 mg Enteric Coated Tablet PO SCH (08:25)
[2019-09-21] MEDS: cefTRIAXone\\ROCEPHIN 2 GM in Sodium Chloride 0.9% 100 ML IVPB SCH ×2 (08:26→20:13)
[2019-09-21] MEDS: Atorvastatin Calcium 10 MG TAB PO SCH (20:13)
[2019-09-22] MEDS: Ampicillin 2 GM in Sodium Chloride 0.9% 100 ML IVPB SCH ×4 (05:24→23:32)
[2019-09-22] MEDS: cefTRIAXone\\ROCEPHIN 2 GM in Sodium Chloride 0.9% 100 ML IVPB SCH ×2 (09:06→20:19)
[2019-09-22] MEDS: Arformoterol 15 MCG/2 ML NEB NEB SCH ×2 (09:07→20:18)
[2019-09-22] MEDS: Potassium Chloride 10 MEQ TAB PO SCH (09:08)
[2019-09-22] MEDS: Amlodipine 5 MG TAB PO SCH (09:09)
[2019-09-22] MEDS: Bumetanide 1 MG TAB PO SCH (09:09)
[2019-09-22] MEDS: Bupropion 150 MG XL TAB PO SCH (09:09)
[2019-09-22] MEDS: Folic Acid 1 MG TAB PO SCH (09:09)
[2019-09-22] MEDS: Lisinopril 5 MG TAB PO SCH (09:09)
[2019-09-22] MEDS: Niacin SR 500 MG CAP PO SCH (09:09)
[2019-09-22] MEDS: Ferrous Sulfate 325 MG TAB PO SCH ×2 (09:09→16:41)
[2019-09-22] MEDS: Aspirin 81 mg Enteric Coated Tablet PO SCH (09:09)
[2019-09-22] MEDS: Carvedilol 3.125 MG TAB PO SCH ×2 (09:09→16:41)
[2019-09-22] MEDS: Magnesium Oxide 400 MG TAB PO SCH (09:10)
[2019-09-22] MEDS: Vancomycin HCl 25 MG/ML Oral PO SCH ×3 (09:21→20:22)
[2019-09-22] MEDS: Atorvastatin Calcium 10 MG TAB PO SCH (20:19)
[2019-09-23] MEDS: Ampicillin 2 GM in Sodium Chloride 0.9% 100 ML IVPB SCH ×4 (05:15→23:15)
[2019-09-23] MEDS: Arformoterol 15 MCG/2 ML NEB NEB SCH ×2 (08:29→20:59)
[2019-09-23] MEDS: Bupropion 150 MG XL TAB PO SCH (08:29)
[2019-09-23] MEDS: Potassium Chloride 10 MEQ TAB PO SCH (08:29)
[2019-09-23] MEDS: Magnesium Oxide 400 MG TAB PO SCH (08:31)
[2019-09-23] MEDS: Folic Acid 1 MG TAB PO SCH (08:31)
[2019-09-23] MEDS: Niacin SR 500 MG CAP PO SCH (08:31)
[2019-09-23] MEDS: Bumetanide 1 MG TAB PO SCH (08:31)
[2019-09-23] MEDS: Carvedilol 3.125 MG TAB PO SCH ×2 (08:31→17:33)
[2019-09-23] MEDS: Ferrous Sulfate 325 MG TAB PO SCH ×2 (08:31→17:33)
[2019-09-23] MEDS: Lisinopril 5 MG TAB PO SCH (08:31)
[2019-09-23] MEDS: Aspirin 81 mg Enteric Coated Tablet PO SCH (08:32)
[2019-09-23] MEDS: Amlodipine 5 MG TAB PO SCH (08:32)
[2019-09-23] MEDS: cefTRIAXone\\ROCEPHIN 2 GM in Sodium Chloride 0.9% 100 ML IVPB SCH ×2 (08:33→21:01)
[2019-09-23] MEDS: Vancomycin HCl 25 MG/ML Oral PO SCH ×2 (08:34→21:02)
[2019-09-23] MEDS: Atorvastatin Calcium 10 MG TAB PO SCH (21:00)
[2019-09-24] MEDS: Ampicillin 2 GM in Sodium Chloride 0.9% 100 ML IVPB SCH ×4 (05:55→23:57)
[2019-09-24] MEDS: Potassium Chloride 10 MEQ TAB PO SCH (08:21)
[2019-09-24] MEDS: Ferrous Sulfate 325 MG TAB PO SCH ×2 (08:21→17:05)
[2019-09-24] MEDS: Aspirin 81 mg Enteric Coated Tablet PO SCH (08:22)
[2019-09-24] MEDS: Folic Acid 1 MG TAB PO SCH (08:22)
[2019-09-24] MEDS: Lisinopril 5 MG TAB PO SCH (08:22)
[2019-09-24] MEDS: Magnesium Oxide 400 MG TAB PO SCH (08:22)
[2019-09-24] MEDS: Bupropion 150 MG XL TAB PO SCH (08:22)
[2019-09-24] MEDS: Amlodipine 5 MG TAB PO SCH (08:22)
[2019-09-24] MEDS: Arformoterol 15 MCG/2 ML NEB NEB SCH ×2 (08:23→20:29)
[2019-09-24] MEDS: Niacin SR 500 MG CAP PO SCH (08:23)
[2019-09-24] MEDS: Bumetanide 1 MG TAB PO SCH (08:23)
[2019-09-24] MEDS: Carvedilol 3.125 MG TAB PO SCH ×2 (08:23→17:05)
[2019-09-24] MEDS: cefTRIAXone\\ROCEPHIN 2 GM in Sodium Chloride 0.9% 100 ML IVPB SCH ×2 (08:24→20:31)
[2019-09-24] MEDS: Vancomycin HCl 25 MG/ML Oral PO SCH ×2 (08:25→20:32)
[2019-09-24 09:39] LABS: ALT (SGPT) 13 U/L (8-55); AST (SGOT) 12 U/L (5-34); Albumin 3.5 g/dL (3.4-4.8); Alkaline Phosphatase 101 U/L (40-110); Anion Gap 12 mmol/L (10-20); BUN (Urea Nitrogen) 18 mg/dL (8.4-25.7); Bilirubin, Total 0.3 mg/dL (0.2-1.2); CRP (Inflammatory) 2.19 mg/dL (= or < 0.5); Calc. Creatinine Clearance 62 mL/min (70-130); Calcium 9.7 mg/dL (7.8-10.44); Carbon Dioxide 27 mmol/L (23-31); Chloride 102 mmol/L (98-107); Estimated GFR-MDRD 59; Globulin 3.7 g/dL (2.4-3.5); Glucose 147 mg/dL (80-115); Potassium 4.4 mmol/L (3.5-5.1); Protein, Total 7.2 g/dL (5.8-8.1); Sodium 137 mmol/L (136-145)
[2019-09-24] MEDS: Atorvastatin Calcium 10 MG TAB PO SCH (20:29)
[2019-09-25] MEDS: Ampicillin 2 GM in Sodium Chloride 0.9% 100 ML IVPB SCH ×4 (05:31→23:34)
[2019-09-25] MEDS: Vancomycin HCl 25 MG/ML Oral PO SCH ×2 (08:36→20:30)
[2019-09-25] MEDS: cefTRIAXone\\ROCEPHIN 2 GM in Sodium Chloride 0.9% 100 ML IVPB SCH ×2 (08:37→20:55)
[2019-09-25] MEDS: Potassium Chloride 10 MEQ TAB PO SCH (08:39)
[2019-09-25] MEDS: Arformoterol 15 MCG/2 ML NEB NEB SCH ×2 (08:39→20:25)
[2019-09-25] MEDS: Bumetanide 1 MG TAB PO SCH (08:39)
[2019-09-25] MEDS: Magnesium Oxide 400 MG TAB PO SCH (08:40)
[2019-09-25] MEDS: Niacin SR 500 MG CAP PO SCH (08:40)
[2019-09-25] MEDS: Folic Acid 1 MG TAB PO SCH (08:40)
[2019-09-25] MEDS: Carvedilol 3.125 MG TAB PO SCH ×2 (08:40→17:06)
[2019-09-25] MEDS: Bupropion 150 MG XL TAB PO SCH (08:40)
[2019-09-25] MEDS: Lisinopril 5 MG TAB PO SCH (08:40)
[2019-09-25] MEDS: Aspirin 81 mg Enteric Coated Tablet PO SCH (08:40)
[2019-09-25] MEDS: Ferrous Sulfate 325 MG TAB PO SCH ×2 (08:40→17:06)
[2019-09-25] MEDS: Amlodipine 5 MG TAB PO SCH (08:41)
[2019-09-25] MEDS: Atorvastatin Calcium 10 MG TAB PO SCH (20:31)
[2019-09-26] MEDS: Ferrous Sulfate 325 MG TAB PO SCH (08:15)
[2019-09-26] MEDS: Carvedilol 3.125 MG TAB PO SCH (08:15)
[2019-09-26] MEDS: Amlodipine 5 MG TAB PO SCH (08:16)
[2019-09-26] MEDS: Potassium Chloride 10 MEQ TAB PO SCH (08:16)
[2019-09-26] MEDS: Lisinopril 5 MG TAB PO SCH (08:16)
[2019-09-26] MEDS: Aspirin 81 mg Enteric Coated Tablet PO SCH (08:16)
[2019-09-26] MEDS: Niacin SR 500 MG CAP PO SCH (08:16)
[2019-09-26] MEDS: Bumetanide 1 MG TAB PO SCH (08:16)
[2019-09-26] MEDS: Folic Acid 1 MG TAB PO SCH (08:16)
[2019-09-26] MEDS: Bupropion 150 MG XL TAB PO SCH (08:16)
[2019-09-26] MEDS: Arformoterol 15 MCG/2 ML NEB NEB SCH (08:18)
[2019-09-26] MEDS: Vancomycin HCl 25 MG/ML Oral PO SCH (08:20)
[2019-09-26] MEDS: Magnesium Oxide 400 MG TAB PO SCH (08:20)
[2019-09-26 08:40] VITALS: BP 117/61; TEMP 98
--- NOTE | 2019-09-27 13:51 | DIS ---
DATE OF ADMISSION: 08/12/2019 DATE OF DISCHARGE: 09/26/2019 ADMITTING ATTENDING: Jennifer Fair MD. DISCHARGE ATTENDING: Mellissa Blum MD. CONSULTS: 1. Dr. Heath Doll. 2. Dr. Heath Teran. DISCHARGE DIAGNOSES: 1. Generalized weakness. 2. Bacterial endocarditis with Enterococcus faecalis. 3. Coronary artery disease. 4. Heart failure with preserved ejection fraction. 5. Hypertension. 6. Clostridium difficile infection. DISCHARGE MEDICATIONS: 1. Folic acid 1 mg p.o. daily. 2. Wellbutrin 150 mg p.o. q.a.m. 3. Brovana 15 mcg nebulized b.i.d. 4. Tylenol No. 3 one tab p.o. q.4 hours p.r.n. 5. Senokot 1 tab p.o. b.i.d. p.r.n. 6. Potassium chloride 40 mEq p.o. q.a.m. with meals. 7. Pantoprazole 40 mg p.o. daily. 8. Niacin 500 mg p.o. daily. 9. Lisinopril 5 mg p.o. daily. 10. Ferrous sulfate 325 mg p.o. b.i.d. with meals. 11. Carvedilol 3.125 mg p.o. b.i.d. with meals. 12. Bumetanide 1 mg p.o. daily. 13. Atorvastatin 20 mg p.o. at bedtime. 14. Amlodipine 5 mg p.o. daily. 15. Magnesium oxide 400 mg p.o. daily. 16. Vancomycin 125 mg p.o. b.i.d. until September 26 followed by vancomycin 125 mg p.o. daily for 1 week followed by vancomycin 125 mg q.2 days x2 doses. HOSPITAL COURSE: Mr. Castaneda is a 69-year-old male with multiple comorbidities, admitted to [facility] for continued IV therapy. For details regarding the patient's very extended hospital stay, please see Dr. Fair's transfer note from July 26, [address] Fair's history and physical from August 13, 2019. On the day of discharge, the patient was noted to be in very good state of physical health. He denies any new symptoms of chest pain or difficulty breathing. DISCHARGE PHYSICAL EXAMINATION: VITAL SIGNS: Temperature 98.0, pulse 90, respirations 18, oxygen 100% on room air, and blood pressure 126/74. GENERAL: The patient is alert and oriented, in no distress. HEENT: Extraocular muscles are intact. Moist mucous membranes. HEART: Regular rate and rhythm with no murmurs, rubs, or gallops. LUNGS: Clear to auscultation bilaterally. EXTREMITIES: No cyanosis, clubbing, or erythema. SKIN: Intact with no rashes. DISPOSITION: Stable. DISCHARGE INSTRUCTIONS: 1. Location: Home. 2. Diet: Heart healthy. 3. Activity: Ad kay. 4. Followup: a. PCP, Dr. Jose Leon in 7 to 10 days. b. Cardiology, Dr. Heath Teran on October 05, 2019. c. Infectious Disease, Dr. Heath Doll, on October 21, 2019. Referrals for outpatient physical therapy and cardiac rehab. Job ID: [id number]
--- NOTE | 2019-09-28 06:06 | PQF ---
[employer] Psychologist Chief Crystal Reports Winform ViewerUNC HEALTH CALDWELL MAURIIZO VOSS KENNY MONTERO MD [id number] CLINICAL DOCUMENTATION CLARIFICATION FORM: POST DISCHARGE Addendum to original discharge summary date: ____ Late entry note date: __ DATE: 09/28/2019 ATTN: KENNY MONTERO MD Please exercise your independent, professional judgment in responding to the clarification form. Clinical indicators are provided on the bottom of this form for your review Please check appropriate box(s): HEART FAILURE: A. TYPE: [ ] Systolic / HFrEF [/] Diastolic / HFpEF [ ] Combined Systolic / Diastolic B. ACUITY [ ] Acute [/] Acute on Chronic [ ] Chronic [ ] Other diagnosis [ ] Unable to determine In addition, please specify: Present on Admission (POA): [/ ] Yes [ ] No [ ] Unable to determine For continuity of documentation, please document condition throughout progress notes and discharge summary. Thank You. CLINICAL INDICATORS - SIGNS / SYMPTOMS / LABS Congestive heart failure LVEF 55-60% without systolic dysfunction compensated - Documented in H&P on 08/12 by KENNY MONTERO MD Small bilateral effusion -Documented in Chest X ray Edema in [place] - Documented in H&P on 08/12 by KENNY MONTERO MD RISKS: hx of CHF History of CAD CKD Hypertension TREATMENTS: Chest X ray SAP Psychologist Chief Crystal Reports Winform Viewer (This form is maintained as a part of the permanent medical record) 2014 [employer]. All Rights Reserved [email or web address] [not provided] MTDD
--- NOTE | 2019-09-29 06:01 | PQF ---
FIELD MAURIZIO Malloy MD [id number] CLINICAL DOCUMENTATION CLARIFICATION FORM: POST DISCHARGE Addendum to original discharge summary date: ____ Late entry note date: __ Date: 09/29/2019 ATTN: Kulwant Malloy MD Please exercise your independent, professional judgment in responding to the clarification form. Clinical indicators are provided on the bottom of this form for your review Please check appropriate box(s): [ ] Protein Calorie Malnutrition: [ ] Mild [ ] Moderate [ ] Severe [ ] Other Malnutrition (please specify) __ [ ] Underweight without malnutrition [ ] Cachexia [ ] Other diagnosis [ ] Unable to determine In addition, please specify: Present on Admission (POA): [ ] Yes [ ] No [ ] Unable to determine CLINICAL INDICATORS - SIGNS / SYMPTOMS / LABS BMI of _24.2 Generalized weakness - Documented in DS on 09/26 by Kulwant Malloy MD Albumin Level 2.7 on 08/13, 2.9 on 08/20 , 3.2 on 08/27 and 3.3 on 09/03 - Documented in Laboratory HGB 8.14 on 08/13 and 9.5 on 09/17 - Documented in Laboratory Physical Deconditioning - Documented in H&P on 08/12 by KENNY MONTERO MD Abnormality of Gait and mobility - Documented in H&P on 08/12 by KENNY MONTERO MD Edema up to the lower tibia - Documented in H&P on 08/12 by KENNY MONTERO MD weight loss - Documented in hand written PNs pg 6 patient not eating consistently - Documented in hand written PNs pg 7 he reports bright red rectal bleeding - Documented in hand written PNs pg 9 RISK FACTORS Bacterial endocarditis with Enterococcus faecalis - Documented in DS on 09/26 by Kulwant Malloy MD Clostridium difficile infection - Documented in DS on 09/26 by Kulwant Malloy MD TREATMENT: Ferrous sulfate 325 mg - medication report IV fluid Moderate Malnutrition (in acute illness) [employer] Digital Marketing Project Manager Crystal Reports Winform ViewerEnergy Intake: <75% of estimated energy requirement for > 7 days Weight Loss: 1-2%/1 week; 5%/ 1 month; 7.5%/3 months Other: mild body fat loss; mild muscle mass loss; mild fluid accumulation; Severe Malnutrition (in acute illness) Energy Intake: < 50% of estimated energy requirement for > 5 days Weight Loss: >1-2%/1 week; >5%/1 month; >7.5%/3 months Other: moderate body fat loss; moderate muscle mass loss; moderate- severe fluid accumulation; measurably reduced marine engineer strength Moderate Malnutrition (in chronic illness) Energy Intake: <75% of estimated energy requirement for >1 month Weight Loss: 5%/1 month; 7.5%/3 months; 10%/6 months; 20%/1 year Other: mild body fat loss; mild muscle mass loss; mild fluid accumulation Severe Malnutrition (in chronic illness) Energy Intake: <75% of estimated energy requirement for >1 month Weight Loss: >5%/1 month; >7.5%/3 months; >10%/6 months; >20%/1 year Other: severe body fat loss; severe muscle mass loss; severe fluid accumulation ; measurably reduced marine engineer strength (This form is maintained as a part of the permanent medical record) 2014 [employer]. All Rights Reserved [email or web address] [not provided] MTDD
[2019-09-30] MEDS ORDERED: Vancomycin HCl 25 MG/ML Oral PO SCH (09:00)
[2019-10-08] MEDS ORDERED: Vancomycin HCl 25 MG/ML Oral PO SCH (09:00)
== END 2019-09-26 10:30 | disposition home or self-care (01) | DRG 288 ==
LOC: UNDOADMIN 13:37 → MADMS 13:37 → UNDOADMIN 08-29 15:44 → MADMS 08-29 15:44
PROVIDERS: ADMIT Family Medicine; ATTEND Family Medicine
DX: I33.0 Acute and subacute infective endocarditis (principal); I50.33 Acute on chronic diastolic (congestive) heart failure; I48.20 Chronic atrial fibrillation, unspecified; D62 Acute posthemorrhagic anemia; I13.0 Hypertensive heart and chronic kidney disease with heart failure and stage 1 through stage 4 chronic kidney disease, or unspecified chronic kidney disease; I25.10 Atherosclerotic heart disease of native coronary artery without angina pectoris; Z95.1 Presence of aortocoronary bypass graft; E78.5 Hyperlipidemia, unspecified; Z95.2 Presence of prosthetic heart valve; I50.9 Heart failure, unspecified; J44.9 Chronic obstructive pulmonary disease, unspecified; G47.33 Obstructive sleep apnea (adult) (pediatric); E11.9 Type 2 diabetes mellitus without complications; M19.91 Primary osteoarthritis, unspecified site; F41.9 Anxiety disorder, unspecified; Z87.891 Personal history of nicotine dependence; Z79.899 Other long term (current) drug therapy; Z79.82 Long term (current) use of aspirin; R53.81 Other malaise; B95.2 Enterococcus as the cause of diseases classified elsewhere; N18.9 Chronic kidney disease, unspecified; F32.9 Major depressive disorder, single episode, unspecified; I35.8 Other nonrheumatic aortic valve disorders
CPT/HCPCS: 36415; 36430; 71046; 80053; 85014; 85018; 85025; 85027; 85652; 86140; 86850; 86900; 86901; 87324; 87449; 94640; J0290; J0696; J1642; J2997; J3490; J7611; P9016; Q0163